=== PATIENT | female | born 1950 | race Caucasian/White ===

== ENCOUNTER → 2017-01-05 08:51 | Day surgery (SDC) | payer MEDICARE, BC ==
[~2017-01-05 08:51] MED LIST: Buffered Lidocaine 1% SYRIN* 3 ML/SYR SYRINGE INTRADERM ONE; Dexamethasone IV* 4 MG/ML 1 ML (4 MG) IV SLOW PU ONE; Dexamethasone IV* 4 MG/ML 1 ML (4 MG) ONE; Famotidine IV* 10 MG/ML 2 ML (20 mg) IV ONE; Famotidine IV* 10 MG/ML 2 ML (20 mg) ONE; Ondansetron INJ* 2 MG/ML VIAL IV PRN; fentaNYL* 50 MCG/ML 2 ML VIAL (100 MCG VIAL) IV PRN; oxyCODONE/Acetamin 5/325 MG* TAB PO PRN
[2017-01-05 12:10] VITALS: BP 142/75
--- NOTE | 2017-01-06 04:17 | OP ---
DATE OF OPERATION: 01/05/17 [facility] DATE OF : 48 SURGEON: Jose Luis Parada MD ANESTHESIOLOGIST: Rickey Antonio MD ANESTHESIA: Spinal. PRE-OP DIAGNOSIS: Cervical abnormality and swelling. POST-OP DIAGNOSES: Cervical abnormality and swelling plus endometrial polyp. OPERATIVE PROCEDURE: D and C, hysteroscopy, and polypectomy. FINDINGS: On exam under anesthesia, the uterus was mid position. There were no adnexal masses palpable, even on rectovaginal. Cervix appeared normal. On hysteroscopy, once into the cervix, the cervical cavity contained a pocket that was somewhat dilated with clear endocervical crypts and a small polyp within it, but no obvious excrescences or signs of gross neoplasm there. Deeper in the cavity was more normal and the endometrial cavity contained a small endometrial polyp, which was removed. Rest of the cavity was atrophic. ESTIMATED BLOOD LOSS: Minimum. SPECIMEN: Include endocervix and endometrial curettings as well as polyp. DESCRIPTION OF PROCEDURE: The patient identified and procedure identified as a D and C, hysteroscopy. The patient was taken to the operating room and prepped and draped in the usual fashion in the dorsal lithotomy position under spinal anesthesia. Two single-tooth tenaculums were placed on the anterior lip of the cervix. Cervix was sounded to 7 cm. The cervix was easily dilated up to #28 Los dilator. The hysteroscope was inserted and the above findings were noted. A sharp curette was inserted and sharp curettage performed until the polyp was excised. Also, attention was paid to the endocervical pocket that was visualized and the polyp was removed from this area as well. Good curettings were obtained from both the endometrial and the endocervical canal. Again, no mass could be seen there. All instruments were removed from the vagina. All sponge and instrument counts were correct, good hemostasis achieved, and the patient returned to recovery room in stable condition. [id number]/[facility] #: [id number] [facility] CENTERJune
== END | disposition home or self-care (01) ==
LOC: OR 08:51
PROVIDERS: ATTEND Obstetrics & Gynecology
DX: N84.0 Polyp of corpus uteri (principal); N88.9 Noninflammatory disorder of cervix uteri, unspecified
CPT/HCPCS: 88305; J1100

== ENCOUNTER 2017-07-04 09:10 | Day surgery (SDC) | payer MEDICARE, BC ==
[~2017-07-04 09:10] MED LIST changes: +Acetaminophen TAB* 325 MG PO PRN; +Buffered Lidocaine 0.9% SYRIN* 5 ML/SYR SYRINGE INTRADERM ONE; -Buffered Lidocaine 1% SYRIN* 3 ML/SYR SYRINGE INTRADERM ONE; -Dexamethasone IV* 4 MG/ML 1 ML (4 MG) IV SLOW PU ONE; -Dexamethasone IV* 4 MG/ML 1 ML (4 MG) ONE; -Famotidine IV* 10 MG/ML 2 ML (20 mg) IV ONE; -Famotidine IV* 10 MG/ML 2 ML (20 mg) ONE; -Ondansetron INJ* 2 MG/ML VIAL IV PRN; -fentaNYL* 50 MCG/ML 2 ML VIAL (100 MCG VIAL) IV PRN; -oxyCODONE/Acetamin 5/325 MG* TAB PO PRN
[2017-07-04] MEDS ORDERED: Midazolam* 1 MG/ML 5 ML VIAL (5 MG) ONE (10:11)
[2017-07-04] MEDS ORDERED: fentaNYL* 50 MCG/ML 2 ML VIAL (100 MCG VIAL) ONE (10:11)
[2017-07-04 11:14] VITALS: BP 140/70
[2017-07-04] MEDS ORDERED: Lidocaine 1% MPF* 2 ML VIAL ONE (14:13)
[2017-07-04] MEDS ORDERED: Tropicamide 1% OPTH.SOL* BTL ONE (14:13)
[2017-07-04] MEDS ORDERED: Neomycin/Polymy/Dex OPHTH.OIN* 3.5 GM ONE (14:13)
[2017-07-04] MEDS ORDERED: Ketorolac 0.5% OPHTH (NF) 0.5 % 5 ML BTL ONE (14:13)
[2017-07-04] MEDS ORDERED: Cyclopentolate 1% OPTH.SOL* 2 ML BTL ONE (14:13)
[2017-07-04] MEDS ORDERED: Phenylephrine 2.5% OPTH.SOL* 2 ML BTL ONE (14:13)
[2017-07-04] MEDS ORDERED: Tetracaine 0.5% OPTH.SOL 4 ML* 1 DROP BTL ONE (14:13)
[2017-07-04] MEDS ORDERED: Buffered Lidocaine 0.9% SYRIN* 5 ML/SYR SYRINGE ONE (14:13)
--- NOTE | 2017-07-04 22:55 | OP ---
DATE OF OPERATION: 07/04/17 [facility] DATE OF : 48 SURGEON: Dr. Edin Bryson. GUEST HOUSE MANAGER: None. ANESTHESIA: Topical with intravenous sedation. PRE-OP DIAGNOSIS: Cataract, right eye. POST-OP DIAGNOSIS: Cataract, right eye. OPERATIVE PROCEDURE: Phacoemulsification and cataract extraction with posterior chamber intraocular lens implant, right eye. COMPLICATIONS: None. BLOOD LOSS: None. DESCRIPTION OF PROCEDURE: The patient was brought to the operating room and received a small amount of intra-venous sedation. A drop of Tetracaine was placed in her right eye. She was prepped and draped in the usual sterile fashion for ophthalmic surgery and attention was directed to the right eye where a speculum was placed. A paracentesis was created at the 11 o'clock position and 0.1 cc of 1 percent preservative-free Lidocaine was injected into the anterior chamber followed by DisCoVisc. The eye was digitally stabilized while a 2.75 mm keratome was used to create a triplanar clear corneal incision at the 9 o'clock position. A continuous curvilinear capsulorrhexis was created with a cystotome and Utrata forceps. BSS on a cannula was used to hydrodissect the lens from the capsule. Phacoemulsification was performed in a divide-and- conquer technique to create four fragments which were removed. Residual cortical material was removed with irrigation and aspiration. DisCoVisc was used to inflate the capsular bag and an AU00T0 24.0 diopter lens was folded and inserted into the capsular bag. DisCoVisc was removed using irrigation and aspiration. BSS on a cannula was used to hydrate the corneal stroma and seal the wound. At the end of the case the pupil was round and the lens was centered. The eye was of normal pressure and the wound was water tight. The speculum was removed and topical Maxitrol ointment was placed on the surface of the eye. The eye was closed, patched and shielded and the patient was sent to the recovery room in stable condition with post operative instructions and follow-up appointment given. [id number]/[facility] #: [id number] [place]
== END 2017-07-04 11:20 | disposition home or self-care (01) ==
LOC: OREAST 09:10
PROVIDERS: ATTEND Ophthalmology
DX: H25.11 Age-related nuclear cataract, right eye (principal); E78.00 Pure hypercholesterolemia, unspecified; F32.9 Major depressive disorder, single episode, unspecified
CPT/HCPCS: A9270-GY; J2250; J3010; V2632

== ENCOUNTER 2017-07-11 07:04 | Day surgery (SDC) | payer MEDICARE, BC ==
[~2017-07-11 07:04] MED LIST changes: -Acetaminophen TAB* 325 MG PO PRN
[2017-07-11] MEDS ORDERED: Lidocaine 2% PF * 5 ML VIAL ONE (08:19)
[2017-07-11] MEDS ORDERED: Propofol* 10 MG/ML 20 ML BTL IV PUSH ONE (08:19)
[2017-07-11 09:01] VITALS: BP 127/66
--- NOTE | 2017-07-11 09:57 | OP ---
DATE OF OPERATION/DATE OF DICTATION: 07/11/2017 - [facility] DATE OF : 1950. SURGEON: Dr. Edin Brysno. TRAINING AND DEVELOPMENT SPECIALIST: None. ANESTHESIA: Topical with intravenous sedation. PRE-OP DIAGNOSIS: Cataract, left eye. POST-OP DIAGNOSIS: Cataract, left eye. OPERATIVE PROCEDURE: Phacoemulsification and cataract extraction with posterior chamber intraocular lens implant, left eye. COMPLICATIONS: None. BLOOD LOSS: None. DESCRIPTION OF PROCEDURE: The patient was brought to the operating room and received a small amount of intravenous sedation. A drop of Tetracaine was placed in her left eye. She was prepped and draped in the usual sterile fashion for ophthalmic surgery and attention was directed to the left eye where a speculum was placed. A paracentesis was created at the 5 o'clock position and 0.1 cc of 1 percent preservative-free Lidocaine was injected into the anterior chamber followed by DisCoVisc. The eye was digitally stabilized while a 2.75 mm keratome was used to create a triplanar clear corneal incision at the 3 o'clock position. A continuous curvilinear capsulorrhexis was created with a cystotome and Utrata forceps. BSS on a cannula was used to hydrodissect the lens from the capsule. Phacoemulsification was performed in a divide-and- conquer technique to create four fragments which were removed. Residual cortical material was removed with irrigation and aspiration. DisCoVisc was used to inflate the capsular bag and an AUOOTO 24.0 diopter lens was folded and inserted into the capsular bag. DisCoVisc was removed using irrigation and aspiration. BSS on a cannula was used to hydrate the corneal stroma and seal the wound. At the end of the case the pupil was round and the lens was centered. The eye was of normal pressure and the wound was water tight. The speculum was removed and topical Maxitrol ointment was placed on the surface of the eye. The eye was closed, patched and shielded and the patient was sent to the recovery room in stable condition with post operative instructions and follow-up appointment given. [id number]/[facility] #: [id number] MTD[facility]
[2017-07-11] MEDS ORDERED: Phenylephrine 2.5% OPTH.SOL* 2 ML BTL ONE (15:07)
[2017-07-11] MEDS ORDERED: Neomycin/Polymy/Dex OPHTH.OIN* 3.5 GM ONE (15:07)
[2017-07-11] MEDS ORDERED: Lidocaine 1% MPF* 2 ML VIAL ONE (15:07)
[2017-07-11] MEDS ORDERED: Ketorolac 0.5% OPHTH (NF) 0.5 % 5 ML BTL ONE (15:07)
[2017-07-11] MEDS ORDERED: Tetracaine 0.5% OPTH.SOL 4 ML* 1 DROP BTL ONE (15:07)
[2017-07-11] MEDS ORDERED: Cyclopentolate 1% OPTH.SOL* 2 ML BTL ONE (15:07)
[2017-07-11] MEDS ORDERED: Tropicamide 1% OPTH.SOL* BTL ONE (15:07)
== END 2017-07-11 08:54 | disposition home or self-care (01) ==
LOC: OREAST 07:04
PROVIDERS: ATTEND Ophthalmology
DX: H25.12 Age-related nuclear cataract, left eye (principal); E78.5 Hyperlipidemia, unspecified; J45.909 Unspecified asthma, uncomplicated; Z68.36 Body mass index [BMI] 36.0-36.9, adult
CPT/HCPCS: A9270-GY; J2704; V2632

== ENCOUNTER 2018-12-24 19:16 | Observation (INO) | payer MEDICARE, BC ==
--- NOTE | 2018-12-24 19:31 | ED ---
Dizziness - HPI Summary HPI Summary: This patient is a 68 year old F brought in by ambulance to ED with a chief complaint of vertigo since late yesterday. She was brought to [facility] and then transferred from their ED. She was given Benadryl and ASA. The patient rates the pain 0/10 in severity. Symptoms aggravated by standing up or moving around. Symptoms alleviated by resting. Patient reports N/V x1 last night and unsteady gait (baseline). Patient denies CP, nasal congestion, ear pain, recent illnesses, SOB, and slurred speech. She reports shes never had previous vertigo episodes. - History Of Current Complaint Stated Complaint: NEURO CONSULT PER EMS Time Seen by Provider: 12/24/18 19:21 Hx Obtained From: Patient Onset/Duration: Suddenly - since late yesterday Timing: Days Severity Currently: None Aggravating Factor(s): Other - standing up or moving around Alleviating Factor(s): Rest Associated Signs And Symptoms: Positive: Nausea, Vomiting, Unsteady Gait - her baseline, Other: - denies nasal congestion, ear pain, recent illnesses, slurred speech. Negative: Chest Pain, SOB - Allergies/Home Medications Allergies/Adverse Reactions: Allergies Allergy/AdvReac Type Severity Reaction Status Date / Time No Known Allergies Allergy Verified 07/11/17 07:25 PMH/Surg Hx/FS Hx/Imm Hx Endocrine/Hematology History: Denies: Hx Diabetes Cardiovascular History: Denies: Hx Coronary Artery Disease, Hx Hypertension, Hx Pacemaker/ICD, Other Cardiovascular Problems/Disorders Respiratory History: Denies: Other Respiratory Problems/Disorders GI History: Denies: Hx Gastroesophageal Reflux Disease, Other GI Disorders History: Denies: Hx Dialysis, Hx Renal Disease Musculoskeletal History: Reports: Hx Bursitis - RIGHT HIP Denies: Other Musculoskeletal History Sensory History: Reports: Hx Cataracts - LEANNA, Hx Contacts or Glasses - GLASSES Denies: Hx Hearing Aid Opthamlomology History: Reports: Hx Cataracts - LEANNA, Hx Contacts or Glasses - GLASSES Neurological History: Denies: Other Neuro Impairments/Disorders Psychiatric History: Reports: Hx Anxiety, Hx Depression - ON LAMICTAL FOR THIS Denies: Hx Panic Disorder - Cancer History Hx Chemotherapy: No Hx Radiation Therapy: No - Surgical History Surgery Procedure, Year, and Place: SPINAL CYST REMOVED. BREAST BIOPSY Hx Anesthesia Reactions: No - Immunization History Date of Tetanus Vaccine: PT STATES UNSURE Date of Influenza Vaccine: NONE - Family History Known Family History: Positive: Cardiac Disease, Other Family History: CA and Alzheimer's - Social History Alcohol Use: Rare Alcohol Amount: 1 X MONTHLY Substance Use Type: Reports: None Smoking Status (MU): Never Smoked Tobacco Review of Systems Positive: Other - denies recent illnesses. Negative: Fever, Chills Negative: Erythema Positive: Other - denies nasal congestion, ear pain. Negative: Sore Throat Negative: Chest Pain Negative: Shortness Of Breath, Cough Positive: Vomiting - x1 last night, Nausea - x1 last night. Negative: Abdominal Pain Negative: dysuria, hematuria Negative: Myalgia, Edema Negative: Rash Neurological: Other - unsteady gait (baseline), vertigo Negative: Slurred Speech All Other Systems Reviewed And Are Negative: Yes Physical Exam - Summary Physical Exam Summary: Constitutional: Well-developed, Well-nourished, Alert. (-) Distressed Skin: Warm, Dry HENT: Normocephalic; Atraumatic Eyes: Conjunctiva normal Neck: Musculoskeletal ROM normal neck. (-) JVD, (-) Stridor, (-) Tracheal deviation Cardio: Rhythm regular, rate normal, Heart sounds normal; Intact distal pulses; The pedal pulses are 2+ and symmetric. Radial pulses are 2+ and symmetric. (-) Murmur Pulmonary/Chest wall: Effort normal. (-) Respiratory distress, (-) Wheezes, (-) Rales Abd: Soft. (-) Tenderness, (-) Distension, (-) Guarding, (-) Rebound Musculoskeletal: (-) Edema Lymph: (-) Cervical adenopathy Neuro: Alert, Oriented x3, Strength normal, Cranial nerves II-XII are grossly intact. (-) Dysmetria, (-) Nystagmus, (-) Ataxia by finger to nose testing, (-) Sensory deficit. Gait was somewhat unsteady. Negative romberg test. Heel to langley test is normal. Supine roll test and marah hallpike test is negative. Constant vertigo irrespective of head movement, could be posterior stroke. Psych: Mood and affect Normal Triage Information Reviewed: Yes Vital Signs On Initial Exam: Initial Vitals Temp Pulse Resp BP Pulse Ox 98.6 F 87 18 168/87 97 12/24/18 19:24 12/24/18 19:24 12/24/18 19:24 12/24/18 19:24 12/24/18 19:24 Vital Signs Reviewed: Yes Diagnostics - Laboratory Result Diagrams: 12/24/18 19:52 12/24/18 19:52 Lab Statement: Any lab studies that have been ordered have been reviewed, and results considered in the medical decision making process. - EKG 2126 Cardiac Rate: NL - 77 BPM EKG Rhythm: Sinus Rhythm Summary of EKG Findings: No STEMI - Additional Comments Diagnostic Additional Comments: Brain MRI, Head and Neck MRA: Pending radiologist official report. Dr. Hayes will take over from here. Dizzy Course/Dx - Course Assessment/Plan: This patient is a 68 year old F brought in by ambulance to ED with a chief complaint of vertigo since late yesterday. The patient has constant vertigo irrespective of head movement, could be posterior stroke. Consulted Dr. Jeffrey at 1940 who suggests an MRI/MRA and admission to the hospitalist. He says that she is most likely out of the neurology interventional window and that it is extremely unlikely that she has a basilar artery occlusion. Consulted Dr. Hayes at 1953 who accepts the patient for admission. I reviewed the chart from [facility] and reviewed that they gave the patient ASA and Meclizine. In the ED course, the patient was given Lopressor. EKG reveals NSR at 77 BPM and no STEMI.The patient will be admitted with a dx of vertigo, gait instability, and stroke. The patient understands and agrees with this plan. - Diagnoses Differential Diagnosis/HQI/PQRI: Other - vertigo, gait instability, and stroke Provider Diagnoses: Vertigo, Gait instability, Stroke - Provider Notifications Discussed Care Of Patient With: Skyler Jeffrey Time Discussed With Above Provider: 19:41 Instructed by Provider To: Other - Consulted Dr. Jeffrey at 1940 who suggests an MRI/MRA and admission to the hospitalist. He says that she is most likely out of the neurology interventional window and that it is extremely unlikely that she has a basilar artery occlusion. Consulted Dr. Hayes at 1953 and she accepts the patient for admission. - Critical Care Time Critical Care Time: 30-74 min - 45 minutes Discharge - Sign-Out/Discharge Documenting (check all that apply): Patient Departure - admit Patient Received Moderate/Deep Sedation with Procedure: No - Discharge Plan Condition: Stable Disposition: ADMITTED TO [facility] Referrals: Bruna Moore MD [Primary Care Provider] - - Attestation Statements Document Initiated by Scribe: Yes Documenting Scribe: Jose Carter Provider For Whom Scribe is Documenting (Include Credential): Margarito Nash MD Scribe Attestation: Jose Preston, scribed for Margarito Nash MD on 12/24/18 at 2151. Status of Scribe Document: Ready
[2018-12-24] MEDS ORDERED: Metoprolol Tartrate TAB* 25 MG PO ONE (19:45)
[2018-12-24 20:00] LABS: ABS Basophils 0.1 10^3/ul (0-0.2); ABS Eosinophils 0.1 10^3/ul (0-0.6); ABS Lymphocytes 1.3 10^3/ul (1.0-4.8); ABS Monocytes 0.5 10^3/ul (0-0.8); ABS Neutrophils 4.4 10^3/ul (1.5-7.7); ABS Nucleated RBC 0 10^3/ul; Eosinophil % 1.6 %; Hematocrit 36 % (33-41); Hemoglobin 12.1 g/dL (12.0-16.0); Lymphocyte % 19.6 %; Mean Corpuscular HGB Conc 33 g/dL (31-36); Mean Corpuscular Hemoglobin 30 pg (27-31); Mean Corpuscular Volume 89 fL (80-97); Mean Platelet Volume 6.4 fL (7.4-10.4); Nucleated Red Blood Cells % 0; Platelet Count 354 10^3/uL (150-450); Red Cell Distribution Width 14 % (10.5-15); White Blood Count 6.4 10^3/uL (3.5-10.8)
--- OUTSIDE RECORDS SUMMARY | 2018-12-24 20:18 | XMS REPORT | Continuity of Care Document ---
:1950 External Reference #:[id number] Author Name Henri Ary Care Team Providers Name Role Phone Bruna Moore MD Primary Care Physician Unavailable Payers Date Identification Numbers Payment Provider Subscriber Policy Number: [id number] Medicare Candice Payton PayID: [id number] [address] [place] [address] Policy Number: [id number] [facility] Candice Payton PayID: [id number] [address] [place] [address] Advance Directives Description No Information Available Problems Date Description Provider Status Onset: 09/22/2010 Anxiety state Bruna Moore M.D. Active Onset: 09/22/2010 Hyperlipidemia Bruna Moore M.D. Active Onset: 12/08/2016 Sprain of shoulder and upper arm Torey Lewis MD Active Onset: 12/08/2016 Injury of shoulder region Torey Lewis MD Active Onset: 12/08/2016 Localized, secondary Torey Lewis MD Active osteoarthritis of the shoulder region Onset: 10/26/2017 Disturbance in sleep behavior Yessenia Marques MD Active Onset: 11/28/2017 Obstructive sleep apnea syndrome Lora Pryor DNP RN, Active [employer] Onset: 11/28/2017 Periodic limb movement disorder Lora Pryor DNP, RN, Active [employer] Family History Date Family Member(s) Observation Comments General No Current Problems : (age Father due to Heart Cardiac arrest, skin 91 Years) Disease cancer, hyperlipidemia : (age Mother due to 94 Years) Alzheimer's Disease Siblings Siblings: 1 sister, 2 brothers First Sister Skin Cancer multiple BCC Social History Type Date Description Comments Sex Unknown Lives With Alone 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[employer], retired Occupation Retired Tobacco Use Start: Unknown Never Smoked Cigarettes ETOH Use Drinks Alcoholic Beverages Rarely Tobacco Use Start: Unknown Patient has never smoked Recreational Drug Use Denies Drug Use Smoking Status Reviewed: 11/27/18 Patient has never smoked Exercise Type/Frequency Exercises regularly Exercise Type/Frequency Exercises at a health club 5 times a week Allergies, Adverse Reactions, Alerts Date Description Reaction Status Severity Comments 11/17/2009 No Known Drug Allergy Active Medications Medication Date Status Form Strength Qnty SIG Indications Ordering Provider Gabapentin 10/30 Active Capsules 300mg 30caps take 1 capsules Cotton, by mouth M.D. at bedtime Diclofenac 10/01 Active Gel 1% 100unit apply not M19.049 s more than Cotton, 2 grams M.D. to the hands 4 times a day as needed Atorvastatin 11/05 Active Tablets 80mg 90tabs take 1 Calcium tablet by Cotton, mouth M.D. once daily Venlafaxine HCL 05/07 Active Tablets ER 150mg 90tabs take 3 F32.9 Bruna ER 24HR tablets Cotton, by mouth M.D. once daily Lamotrigine 05/07 Active Tablets 200mg 60tabs 1 by Bruna /2014 mouth Cotton, twice a M.D. day Benadryl Allergy Active Tablets 25mg 2 po Unknown /0000 nightly for sleep Melatonin Active 1 po at Unknown /0000 night Gabapentin 03/23 Hx Capsules 100mg 60caps 1-3 tablets Cotton, - once M.D. 10/30 daily at bedtime Estradiol 08/28 Hx Tablets 0.5mg 30tabs 1 po qd R61 Bruna /2017 Not Cotton, - started M.D. 02/0611/28/17 Medroxyprogester 08/28 Hx Tablets 2.5mg 30tabs 1 PO qd R61 Bruna Not Cotton, - started M.D. 02/0611/28/17 Alprazolam 11/25 Hx Tablets 0.25mg 20tabs 1 tab by F41.9 mouth Cotton, - twice M.D. 08/27 daily needed anxiety Triamcinolone 10/03 Hx Cream 0.1% 15gm apply R21 Bruna Acetonide thin film Cotton, - twice M.D. 01/24 daily Tramadol HCL 02/01 Hx Tablets 50mg 30tabs 1 tablet S23.41xA three to Rex, N.P. - four 10/27 times daily as needed Atorvastatin 10/17 Hx Tablets 80mg 90tabs 1 by Bruna Calcium /2014 mouth Cotton, - every day M.D. 10/26 Amitriptyline 05/07 Hx Tablets 10mg 90tabs 3 by Bruna HCL mouth Cotton, - every day M.D. 02/01 Atorvastatin 04/10 Hx Tablets 40mg 1 by Bruna Calcium mouth Cotton, - every day M.D. 04/10 Atorvastatin 04/10 Hx Tablets 40mg 30tabs 1 by Ericka Calcium mouth Varn, N.P. - every day 10/17 Atorvastatin 10/10 Hx Tablets 80mg 90tabs 1 po qhs Bruna Calcium Cotton, - M.D. 04/10 Support 07/27 Hx 2Pairs 15 - 20 451.2 Ericka Stockings strengnth Rex, N.P. - thigh 01/23 Atorvastatin 04/27 Hx Tablets 40mg 90tabs Take 1 Bruna Calcium Tablet By Cotton, - Mouth M.D. 10/10 Once Daily Astelin 02/10 Hx Solution 137mcg/Sp 30ml 2 squirts ray in each Cotton, - nostril M.D. 10/01 bid Ipratropium 02/01 Hx Solution 0.03% 30ml 2 sprays 472.0 Bruna Vichy in each Cotton, - nostril M.D. 02/10 2-3 times daily Atrovent 01/30 Hx Solution 0.03% 30ml 2 sprays in each Cotton, - nostril M.D. 10/01 2-3 times qd prn Fluticasone 01/14 Hx Suspension 50mcg/Act 16gm 2 472.0 Bruna Propionate intranasa Cotton, - l puffs M.D. 02/01 daily Ketoconazole 04/30 Hx Cream 2% 60gm apply 782.1 thin film Cotton, - bid M.D. 09/02 Erythromycin 04/26 Hx Gel 2% 30gm apply 782.1 thin film Cotton, - twice M.D. 04/30 Dextroamphetamin 03/17 Hx Caps ER 5mg 1-2 Unknown e Sulfate 24HR tablets - once 04/26 Nasonex 03/17 Hx Suspension 50mcg/Act sample 2 sprays each Cotton, - nostril M.D. 05/24 Amitriptyline 03/17 Hx Tablets 25mg 2 tablets once Cotton, - daily at M.D. 05/07 bedtime Lipitor 03/17 Hx Tablets 40mg 90tabs Take 1 Tablet By Cotton, - Mouth M.D. 04/27 Daily Lamictal Hx Chewtabs 200mg 1 tablet Unknown /0000 twice - daily 05/25 Effexor XR Hx Caps ER 150mg 30caps 3 311 Unknown /0000 24HR capsules - once 05/07 Clonazepam Hx Tablets 0.5mg 30tabs 09/28 - 1 Bruna tab by Cotton, - mouth M.D. 11/19 night at bedtime Amitriptyline Hx Tablets 10mg 30tabs Unknown HCL /0000 - 03/17 Dextroamphetamin Hx Tablets 10mg 1-2 Unknown e Sulfate tablets - once 09/02 Vyvanse Hx Capsules 40mg 1 po qd Unknown /0000 - 10/01 Lamictal Hx Chewtabs 200mg 1 tablet 311 Unknown /0000 twice - daily 05/07 Aspirin Ec Hx Tablets [address] 81mg 1 by Unknown /0000 mouth - every day 01/24 Effexor XR Hx Caps ER 150mg 1 by Unknown /0000 24HR mouth tid - 10/26 Lipitor Hx Tablets 80mg 1 by Unknown /0000 mouth - every 11/05 night at bedtime Medications Administered in Office Medication Date Status Form Strength Qnty SIG Indications Ordering Provider Inj, Administered Injection Randell D. Regadenoson, 015 Bailey Diaz 0.1 MG Technetium TC Administered Injection Randell DIvelisse 99M 015 Baliey Diaz Tetrofosmin, Per Unit Dose Up To 40 Millicuries Immunizations CPT Code Status Date Vaccine Lot # [id number] Given 06/20/2017 Fluzone High Dose 88826 Given 11/19/2015 Pneumonia Vaccine [id number] 67422 Given 11/13/2014 Pneumococcal Conjugate Vaccine 13 Valent For [id number] Intramuscular Use 57005 Given 06/19/2014 Influenza Virus Vaccine, Quadrivalent, Split, hy658fe Preservative Free 66229 Given 07/01/2011 Influenza Virus 3Yrs & Over [id number] 57355 Given 07/13/2009 Tdap - Tetanus/Diptheria/Acellular Pertussis 53642 Given 07/13/2009 Influenza Virus 3Yrs & Over 53776 Given 07/08/2008 Influenza Virus 3Yrs & Over Vital Signs Date Vital Result Comment 11/27/2018 3:03pm Height 64 inches 5'4" Weight 192.00 lb Heart Rate 88 /min BP Systolic Sitting 127 mmHg BP Diastolic Sitting 73 mmHg O2 % BldC Oximetry 95 % BMI (Body Mass Index) 33.0 kg/m2 10/01/2018 10:53am Height 64 inches 5'4" Weight 191.00 lb Heart Rate 76 /min BP Systolic Sitting 127 mmHg BP Diastolic Sitting 69 mmHg O2 % BldC Oximetry 95 % BMI (Body Mass Index) 32.8 kg/m2 06/19/2018 2:26pm Height 64 inches 5'4" Weight 192.00 lb Heart Rate 92 /min BP Systolic Sitting 131 mmHg BP Diastolic Sitting 77 mmHg O2 % BldC Oximetry 96 % BMI (Body Mass Index) 33.0 kg/m2 03/22/2018 11:20am Height 64 inches 5'4" Weight 188.00 lb Heart Rate 82 /min BP Systolic Sitting 115 mmHg BP Diastolic Sitting 77 mmHg O2 % BldC Oximetry 96 % BMI (Body Mass Index) 32.3 kg/m2 02/07/2018 9:26am Height 64 inches 5'4" Weight 189.00 lb Heart Rate 80 /min BP Systolic Sitting 142 mmHg Rue reg cuff BP Diastolic Sitting 98 mmHg Rue reg cuff Respiratory Rate 16 /min O2 % BldC Oximetry 96 % On Ra BMI (Body Mass Index) 32.4 kg/m2 11/28/2017 8:44am Height 64 inches 5'4" Weight 184.00 lb Heart Rate 76 /min BP Systolic Sitting 130 mmHg Lue reg cuff BP Diastolic Sitting 80 mmHg Lue reg cuff Respiratory Rate 16 /min O2 % BldC Oximetry 97 % On Ra BMI (Body Mass Index) 31.6 kg/m2 11/14/2017 3:35pm Weight 182.00 lb Heart Rate 79 /min BP Systolic 138 mmHg BP Diastolic 78 mmHg Body Temperature 98.1 F O2 % BldC Oximetry 98 % 10/26/2017 2:04pm Height 60.5 inches 5'0.50" Weight 183.00 lb per pt Heart Rate 78 /min Respiratory Rate 16 /min O2 % BldC Oximetry 98 % On Ra BMI (Body Mass Index) 35.1 kg/m2 Neck Circumference in inches 15 09/19/2017 10:02am Height 60.5 inches 5'0.50" Weight 194.00 lb Heart Rate 93 /min BP Systolic 120 mmHg BP Diastolic 70 mmHg O2 % BldC Oximetry 96 % BMI (Body Mass Index) 37.3 kg/m2 08/28/2017 2:47pm Height 60.5 inches 5'0.50" Weight 192.50 lb Heart Rate 91 /min BP Systolic 132 mmHg BP Diastolic 60 mmHg O2 % BldC Oximetry 98 % BMI (Body Mass Index) 37.0 kg/m2 06/28/2017 9:52am Height 60.5 inches 5'0.50" Weight 188.00 lb Heart Rate 75 /min BP Systolic Sitting 126 mmHg BP Diastolic Sitting 82 mmHg O2 % BldC Oximetry 98 % BMI (Body Mass Index) 36.1 kg/m2 05/30/2017 10:13am Height 60.5 inches 5'0.50" Weight 184.00 lb Heart Rate 80 /min BP Systolic Sitting 118 mmHg BP Diastolic Sitting 80 mmHg Body Temperature 97.4 F BMI (Body Mass Index) 35.3 kg/m2 05/19/2017 3:53pm Height 65.50 inches 5'5.50" Weight 182.00 lb Heart Rate 86 /min BP Systolic 130 mmHg BP Diastolic 76 mmHg Body Temperature 98.2 F O2 % BldC Oximetry 98 % BMI (Body Mass Index) 29.8 kg/m2 01/24/2017 3:50pm Weight 191.00 lb Heart Rate 96 /min BP Systolic Sitting 136 mmHg BP Diastolic Sitting 78 mmHg O2 % BldC Oximetry 98 % 12/08/2016 9:45am Height 60.5 inches 5'0.50" Weight 184.00 lb Heart Rate 87 /min BP Systolic 118 mmHg BP Diastolic 71 mmHg Body Temperature 97.1 F BMI (Body Mass Index) 35.3 kg/m2 11/25/2016 10:46am Height 65 inches 5'5" Weight 184.00 lb Heart Rate 90 /min BP Systolic 124 mmHg BP Diastolic 76 mmHg O2 % BldC Oximetry 97 % BMI (Body Mass Index) 30.6 kg/m2 10/27/2016 2:21pm Height 64.5 inches 5'4.50" Weight 187.00 lb Heart Rate 86 /min BP Systolic 118 mmHg BP Diastolic 68 mmHg Body Temperature 98.9 F O2 % BldC Oximetry 98 % BMI (Body Mass Index) 31.6 kg/m2 10/03/2016 3:37pm Weight 190.00 lb with shoes Heart Rate 93 /min BP Systolic Sitting 120 mmHg BP Diastolic Sitting 60 mmHg O2 % BldC Oximetry 98 % 05/20/2016 2:32pm Weight 193.50 lb Heart Rate 76 /min BP Systolic 126 mmHg BP Diastolic 73 mmHg O2 % BldC Oximetry 99 % 02/02/2016 1:56pm Height 64.5 inches 5'4.50" Weight 190.00 lb Heart Rate 76 /min BP Systolic Sitting 130 mmHg BP Diastolic Sitting 84 mmHg Respiratory Rate 15 /min Body Temperature 97.3 F O2 % BldC Oximetry 98 % BMI (Body Mass Index) 32.1 kg/m2 11/19/2015 1:08pm Height 64.5 inches 5'4.50" Weight 192.75 lb Heart Rate 80 /min BP Systolic Sitting 124 mmHg BP Diastolic Sitting 70 mmHg Body Temperature 97.9 F O2 % BldC Oximetry 97 % BMI (Body Mass Index) 32.6 kg/m2 04/17/2015 1:46pm Weight 173.00 lb Heart Rate 88 /min BP Systolic Sitting 123 mmHg BP Diastolic Sitting 71 mmHg Body Temperature 97.9 F 02/18/2015 9:01am Weight 176.75 lb Heart Rate 80 /min BP Systolic Sitting 103 mmHg BP Diastolic Sitting 63 mmHg 02/05/2015 3:23pm Height 65.25 inches 5'5.25" Weight 174.00 lb Heart Rate 76 /min BP Systolic Sitting 112 mmHg BP Diastolic Sitting 64 mmHg Respiratory Rate 16 /min BMI (Body Mass Index) 28.7 kg/m2 11/13/2014 10:24am Height 65.25 inches 5'5.25" Weight 175.00 lb Heart Rate 82 /min BP Systolic Sitting 106 mmHg BP Diastolic Sitting 66 mmHg Body Temperature 97.8 F BMI (Body Mass Index) 28.9 kg/m2 10/14/2014 4:11pm Height 65.5 inches 5'5.50" Weight 179.00 lb Heart Rate 72 /min BP Systolic 118 mmHg BP Diastolic 72 mmHg Body Temperature 98.3 F BMI (Body Mass Index) 29.3 kg/m2 06/19/2014 10:58am Weight 182.00 lb Heart Rate 84 /min BP Systolic Sitting 118 mmHg BP Diastolic Sitting 74 mmHg Body Temperature 97.8 F 05/07/2014 9:42am Weight 181.00 lb Heart Rate 72 /min BP Systolic Sitting 108 mmHg BP Diastolic Sitting 68 mmHg Body Temperature 96.8 F 04/10/2014 11:42am Height 66.5 inches 5'6.50" Weight 181.00 lb with shoes Heart Rate 78 /min BP Systolic Sitting 104 mmHg BP Diastolic Sitting 64 mmHg Body Temperature 96.6 F BMI (Body Mass Index) 28.8 kg/m2 02/18/2014 11:11am Height 66.5 inches 5'6.50" Weight 185.00 lb Heart Rate 76 /min BP Systolic Sitting 120 mmHg BP Diastolic Sitting 70 mmHg Respiratory Rate 16 /min BMI (Body Mass Index) 29.4 kg/m2 12/26/2012 4:25pm Height 66.5 inches 5'6.50" Weight 199.00 lb Heart Rate 80 /min BP Systolic Sitting 124 mmHg BP Diastolic Sitting 62 mmHg BMI (Body Mass Index) 31.6 kg/m2 10/01/2012 10:02am Height 66.5 inches 5'6.50" Weight 197.00 lb Heart Rate 80 /min BP Systolic Sitting 126 mmHg BP Diastolic Sitting 78 mmHg Body Temperature 98.5 F BMI (Body Mass Index) 31.3 kg/m2 08/02/2012 11:13am Height 66.5 inches 5'6.50" Weight 193.00 lb Heart Rate 92 /min BP Systolic Sitting 138 mmHg BP Diastolic Sitting 66 mmHg BMI (Body Mass Index) 30.7 kg/m2 07/27/2012 1:52pm Height 66.5 inches 5'6.50" Weight 193.00 lb Heart Rate 88 /min BP Systolic Sitting 124 mmHg BP Diastolic Sitting 70 mmHg BMI (Body Mass Index) 30.7 kg/m2 05/25/2012 3:58pm Height 66.5 inches 5'6.50" Weight 186.00 lb Heart Rate 78 /min BP Systolic Sitting 120 mmHg BP Diastolic Sitting 70 mmHg BMI (Body Mass Index) 29.6 kg/m2 03/19/2012 10:30am Height 66.5 inches 5'6.50" Weight 182.00 lb Heart Rate 76 /min BP Systolic Sitting 122 mmHg BP Diastolic Sitting 76 mmHg BMI (Body Mass Index) 28.9 kg/m2 02/02/2012 1:02pm Height 66.5 inches 5'6.50" Weight 186.00 lb Heart Rate 76 /min BP Systolic Sitting 112 mmHg BP Diastolic Sitting 62 mmHg BMI (Body Mass Index) 29.6 kg/m2 09/29/2011 9:48am Height 66.5 inches 5'6.50" Weight 200.00 lb Heart Rate 78 /min BP Systolic Sitting 110 mmHg BP Diastolic Sitting 70 mmHg BMI (Body Mass Index) 31.8 kg/m2 07/01/2011 2:02pm Height 66.5 inches 5'6.50" Weight 196.00 lb Heart Rate 66 /min BP Systolic Sitting 134 mmHg BP Diastolic Sitting 82 mmHg BMI (Body Mass Index) 31.2 kg/m2 02/01/2011 3:35pm Height 66.5 inches 5'6.50" Weight 201.00 lb Heart Rate 76 /min BP Systolic 120 mmHg BP Diastolic 70 mmHg BMI (Body Mass Index) 32.0 kg/m2 01/14/2011 1:38pm Weight 200.00 lb Heart Rate 78 /min BP Systolic Sitting 100 mmHg BP Diastolic Sitting 78 mmHg 09/15/2010 10:05am Weight 193.00 lb Heart Rate 82 /min BP Systolic 118 mmHg lg cuff BP Diastolic 78 mmHg lg cuff 09/02/2010 9:37am Weight 189.00 lb Heart Rate 64 /min BP Systolic 112 mmHg BP Diastolic 72 mmHg 05/24/2010 6:53pm Weight 185.75 lb Heart Rate 84 /min BP Systolic 120 mmHg BP Diastolic 78 mmHg Results Test Date Facility Test Result H/L Range Note Liver Function 07/16/2018 [facility] Total Protein 6.8 g/dL N 6.4-8.9 Panel [address] [place] [address] [phone] Albumin 4.3 g/dL N 3.2-5.2 Globulin 2.5 g/dL N 2-4 Albumin/Globulin Ratio 1.7 N 1-3 Total Bilirubin 0.30 mg/dL N 0.2-1.0 Direct Bilirubin 0.10 mg/dL N 0.03-0.18 Indirect Bilirubin 0.2 mg/dL Low 0.3-1.0 Alkaline Phosphatase 101 U/L N 34-104 Alt 19 U/L N 7-52 Ast 15 U/L N 13-39 Laboratory test 07/16/2018 [facility] GGTP 29 U/L N 9-64.0 1 finding [address] [place] [address] [phone] Comp Metabolic Panel 06/21/2018 [facility] Sodium 142 mmol/L N 135-145 [address] [place] [address] [phone] Potassium 4.3 mmol/L N 3.5-5.0 Chloride 106 mmol/L N 101-111 Co2 Carbon Dioxide 29 mmol/L N 22-32 Anion Gap 7 mmol/L N 2-11 Glucose 97 mg/dL N 70-100 Blood Urea Nitrogen 12 mg/dL N 6-24 Creatinine 1.02 mg/dL High 0.51-0.95 BUN/Creatinine Ratio 11.8 N 8-20 Calcium 9.6 mg/dL N 8.6-10.3 Total Protein 6.8 g/dL N 6.4-8.9 Albumin 4.2 g/dL N 3.2-5.2 Globulin 2.6 g/dL N 2-4 Albumin/Globulin Ratio 1.6 N 1-3 Total Bilirubin 0.50 mg/dL N 0.2-1.0 Alkaline Phosphatase 124 U/L High 34-104 Alt 19 U/L N 7-52 Ast 16 U/L N 13-39 Egfr Non- 53.9 >60 Egfr 65.2 >60 2 Laboratory test 06/21/2018 [facility] Hemoglobin A1c 5.7 % High 4.0-5.[address] (Glyco HGB) [place] [address] [phone] Lipid Profile 06/21/2018 [facility] Triglycerides 185 4 (Trig/Chol/HDL) 101 mg/[place] [address] [phone] Cholesterol 208 mg/dL 5 HDL Cholesterol 50.3 mg/dL 6 LDL Cholesterol 121 mg/dL 7 Laboratory test 03/22/2018 [facility] Magnesium 2.1 mg/dL N 1.9-2.[address] [place] [address] [phone] Vitamin B12 592 pg/mL N 180-914 8 Laboratory test 03/22/2018 [facility] Ferritin 15.6 ng/mL N 11 -[address] [place] [address] [phone] CBC Auto Diff 03/22/2018 [facility] White Blood 5.8 10^3/uL N 3.5-10.[address] [place] [address] [phone] Red Blood Count 4.25 10^6/uL N 4.00-5.40 Hemoglobin 12.9 g/dL N 12.0-16.0 Hematocrit 38 % N 35-47 Mean Corpuscular Volume 90 fL N 80-97 Mean Corpuscular Hemoglobin 30 pg N 27-31 Mean Corpuscular HGB Conc 34 g/dL N 31-36 Red Cell Distribution Width 14 % N 10.5-15 Platelet Count 360 10^3/uL N 150-450 Mean Platelet Volume 7.9 um3 N 7.4-10.4 Abs Neutrophils 4.2 10^3/uL N 1.5-7.7 Abs Lymphocytes 1.0 10^3/uL N 1.0-4.8 Abs Monocytes 0.5 10^3/uL N 0-0.8 Abs Eosinophils 0.1 10^3/uL N 0-0.6 Abs Basophils 0 10^3/uL N 0-0.2 Abs Nucleated RBC 0 10^3/uL Granulocyte % 72.4 % N 38-83 Lymphocyte % 17.7 % Low 25-47 Monocyte % 8.2 % High 0-7 Eosinophil % 1.1 % N 0-6 Basophil % 0.6 % N 0-2 Nucleated Red Blood Cells % 0.1 Iron & Iron Binding 03/22/2018 [facility] Iron 92 g/dL N 50- [address] [place] [address] [phone] Unsaturated Iron Binding 266 g/dL Total Iron Binding Capacity 358 g/dL N 250-450 Transferrin 256 mg/dL N 203-362 % Iron Saturation 26 % N 15-55 CBC Auto Diff 09/05/2017 [facility] White Blood 7.1 10^3/uL N 3.5-10.[address] [place] [address] [phone] Red Blood Count 4.25 10^6/uL N 4.0-5.4 Hemoglobin 12.1 g/dL N 12.0-16.0 Hematocrit 37 % N 35-47 Mean Corpuscular Volume 86 fL N 80-97 Mean Corpuscular Hemoglobin 29 pg N 27-31 Mean Corpuscular HGB Conc 33 g/dL N 31-36 Red Cell Distribution Width 15 % N 10.5-15 Platelet Count 409 10^3/uL N 150-450 Mean Platelet Volume 8 um3 N 7.4-10.4 Abs Neutrophils 5.5 10^3/uL N 1.5-7.7 Abs Lymphocytes 1.0 10^3/uL N 1.0-4.8 Abs Monocytes 0.5 10^3/uL N 0-0.8 Abs Eosinophils 0.1 10^3/uL N 0-0.6 Abs Basophils 0 10^3/uL N 0-0.2 Abs Nucleated RBC 0 10^3/uL Granulocyte % 76.7 % N 38-83 Lymphocyte % 14.3 % Low 25-47 Monocyte % 7.6 % N 1-9 Eosinophil % 0.7 % N 0-6 Basophil % 0.7 % N 0-2 Nucleated Red Blood Cells % 0 Laboratory test 09/05/2017 [facility] TSH (Thyroid 2.74 mcIU/mL N 0.34-5.[address] Stim Horm) [place] [address] [phone] Erythrocyte Sed Rate 32 mm/Hr N 0-40 Laboratory test 01/10/2017 [facility] Blood Urea 16 mg/dL N 6- 24 9 finding [address] [place] [address] [phone] Creatinine 01/10/2017 [facility] Creatinine 0.88 mg/dL N 0.51- 0.[address] [place] [address] [phone] Egfr Non- 64.1 N >60 Egfr 82.4 N >60 10 Lipid Profile 12/08/2016 [facility] Triglycerides 173 mg/dL N 11 (Trig/Chol/HDL) [address] [place] [address] [phone] Cholesterol 192 mg/dL N 12 HDL Cholesterol 51.4 mg/dL N 13 LDL Cholesterol 106 mg/dL N 14 Comp Metabolic Panel 12/08/2016 [facility] Sodium 139 mmol/L N 133-[address] [place] [address] [phone] Potassium 4.2 mmol/L N 3.5-5.0 Chloride 103 mmol/L N 101-111 Co2 Carbon Dioxide 28 mmol/L N 22-32 Anion Gap 8 mmol/L N 2-11 Glucose 93 mg/dL N 70-100 Blood Urea Nitrogen 13 mg/dL N 6-24 Creatinine 0.96 mg/dL High 0.51-0.95 BUN/Creatinine Ratio 13.5 N 8-20 Calcium 9.7 mg/dL N 8.6-10.3 Total Protein 6.9 g/dL N 6.4-8.9 Albumin 4.4 g/dL N 3.2-5.2 Globulin 2.5 g/dL N 2-4 Albumin/Globulin Ratio 1.8 N 1-3 Total Bilirubin 0.50 mg/dL N 0.2-1.0 Alkaline Phosphatase 68 U/L N 34-104 Alt 26 U/L N 7-52 Ast 18 U/L N 13-39 Egfr Non- 58.0 N >60 Egfr 74.6 N >60 15 Lipid Profile 12/03/2015 [facility] Triglycerides 71 mg/dL N 16 (Trig/Chol/HDL) [address] [place] [address] [phone] Cholesterol 138 mg/dL N 17 HDL Cholesterol 53.9 mg/dL N 18 LDL Cholesterol 70 mg/dL N 19 Comp Metabolic Panel 12/03/2015 [facility] Sodium 140 mmol/L N 133-[address] [place] [address] [phone] Potassium 4.4 mmol/L N 3.5-5.0 Chloride 106 mmol/L N 101-111 Co2 Carbon Dioxide 27 mmol/L N 22-32 Anion Gap 7 mmol/L N 2-11 Glucose 95 mg/dL N 70-100 Blood Urea Nitrogen 14 mg/dL N 6-24 Creatinine 0.94 mg/dL N 0.51-0.95 BUN/Creatinine Ratio 14.9 N 8-20 Calcium 9.4 mg/dL N 8.6-10.3 Total Protein 6.7 g/dL N 6.4-8.9 Albumin 4.2 g/dL N 3.2-5.2 Globulin 2.5 g/dL N 2-4 Albumin/Globulin Ratio 1.7 N 1-3 Total Bilirubin 0.40 mg/dL N 0.2-1.0 Alkaline Phosphatase 80 U/L N 34-104 Alt 13 U/L N 7-52 Ast 14 U/L N 13-39 Egfr Non- 59.6 N >60 Egfr 76.6 N >60 20 Laboratory test 12/03/2015 [facility] TSH (Thyroid 2.17 ?IU/mL N 0.34-5.60 [address] Stim Horm) [place] [address] [phone] CBC No Diff 12/03/2015 [facility] White Blood 4.8 10^3/uL N 3.5-10.[address] [place] [address] [phone] Red Blood Count 4.41 10^6/uL N 4.0-5.4 Hemoglobin 13.3 g/dL N 12.0-16.0 Hematocrit 40 % N 35-47 Mean Corpuscular Volume 90 fL N 80-97 Mean Corpuscular Hemoglobin 30 pg N 27-31 Mean Corpuscular HGB Conc 34 g/dL N 31-36 Red Cell Distribution Width 13 % N 10.5-15 Platelet Count 357 10^3/uL N 150-450 Mean Platelet Volume 7 um3 Low 7.4-10.4 Laboratory test 04/17/2015 [facility] Hemoglobin A1c 5.6 % N Less than [address] (Glyco HGB) 6.[address] [place] [address] [phone] TSH (Thyroid Stim Horm) 2.72 ?IU/mL N 0.34-5.60 CBC Auto Diff 04/17/2015 [facility] White Blood 7.7 10^3/uL N 4.8-10.[address] [place] [address] [phone] Red Blood Count 4.31 10^6/uL N 4.0-5.4 Hemoglobin 13.5 g/dL N 12.0-16.0 Hematocrit 40 % N 35-47 Mean Corpuscular Volume 93 fL N 80-97 Mean Corpuscular Hemoglobin 31 pg N 27-31 Mean Corpuscular HGB Conc 34 g/dL N 31-36 Red Cell Distribution Width 13 % N 10.5-15 Platelet Count 343 10^3/uL N 150-450 Mean Platelet Volume 8 um3 N 7.4-10.4 Abs Neutrophils 5.8 10^3/uL N 1.5-7.7 Abs Lymphocytes 1.0 10^3/uL N 1.0-4.8 Abs Monocytes 0.5 10^3/uL N 0-0.8 Abs Eosinophils 0.1 10^3/uL N 0-0.6 Abs Basophils 0.3 10^3/uL High 0-0.2 Abs Nucleated RBC 0 10^3/uL N Granulocyte % 75.5 % N 38-83 Lymphocyte % 12.7 % Low 25-47 Monocyte % 6.8 % N 1-9 Eosinophil % 1.1 % N 0-6 Basophil % 3.9 % High 0-2 Nucleated Red Blood Cells % 0 N Comp Metabolic Panel 04/17/2015 [facility] Sodium 137 mmol/L N 133-[address] [place] [address] [phone] Potassium 4.3 mmol/L N 3.5-5.0 Chloride 104 mmol/L N 101-111 Co2 Carbon Dioxide 27 mmol/L N 22-32 Anion Gap 6 mmol/L N 2-11 Glucose 95 mg/dL N 70-100 Blood Urea Nitrogen 16 mg/dL N 6-24 Creatinine 0.94 mg/dL N 0.51-0.95 BUN/Creatinine Ratio 17.0 N 8-20 Calcium 9.4 mg/dL N 8.6-10.3 Total Protein 6.7 g/dL N 6.4-8.9 Albumin 4.5 g/dL N 3.2-5.2 Globulin 2.2 g/dL N 2-4 Albumin/Globulin Ratio 2.0 N 1-3 Total Bilirubin 0.30 mg/dL N 0.2-1.0 Alkaline Phosphatase 57 U/L N 34-104 Alt 20 U/L N 7-52 Ast 15 U/L N 13-39 Egfr Non- 59.8 N >60 Egfr 76.9 N >60 23 Comp Metabolic Panel 11/11/2014 [facility] Sodium 139 mmol/L N 133-145 24 [address] [place] [address] [phone] Potassium 4.1 mmol/L N 3.5-5.0 Chloride 105 mmol/L N 101-111 Co2 Carbon Dioxide 29 mmol/L N 22-32 Anion Gap 5 mmol/L N 2-11 Glucose 88 mg/dL N 70-100 Blood Urea Nitrogen 9 mg/dL N 6-24 Creatinine 1.05 mg/dL High 0.51-0.95 BUN/Creatinine Ratio 8.6 N 8-20 Calcium 9.2 mg/dL N 8.6-10.3 Total Protein 6.3 g/dL Low 6.4-8.9 Albumin 4.1 g/dL N 3.2-5.2 Globulin 2.2 g/dL N 2-4 Albumin/Globulin Ratio 1.9 N 1-3 Total Bilirubin 0.30 mg/dL N 0.2-1.0 Alkaline Phosphatase 72 U/L N 34-104 Alt 16 U/L N 7-52 Ast 15 U/L N 13-39 Egfr Non- 52.6 N >60 Egfr 67.6 N >60 25 Lipid Profile 11/11/2014 [facility] Triglycerides 87 mg/dL N 26 (Trig/Chol/HDL) [address] [place] [address] [phone] Cholesterol 116 mg/dL N 27 HDL Cholesterol 41.1 mg/dL N 28 LDL Cholesterol 58 mg/dL N 29 CBC Auto 10/31/2014 [facility] [facility] Blood 4.7 10^3/uL Low 4.8 -10.[address] [place] [address] [phone] Red Blood Count 4.24 10^6/uL N 4.0-5.4 Hemoglobin 13.1 g/dL N 12.0-16.0 Hematocrit 39 % N 35-47 Mean Corpuscular Volume 92 fL N 80-97 Mean Corpuscular Hemoglobin 31 pg N 27-31 Mean Corpuscular HGB Conc 34 g/dL N 31-36 Red Cell Distribution Width 13 % N 10.5-15 Platelet Count 303 10^3/uL N 150-450 Mean Platelet Volume 8 um3 N 7.4-10.4 Abs Neutrophils 3.1 10^3/uL N 1.5-7.7 Abs Lymphocytes 1.1 10^3/uL N 1.0-4.8 Abs Monocytes 0.5 10^3/uL N 0-0.8 Abs Eosinophils 0 10^3/uL N 0-0.6 Abs Basophils 0 10^3/uL N 0-0.2 Abs Nucleated RBC 0.01 10^3/uL N Granulocyte % 64.4 % N 38-83 Lymphocyte % 23.5 % Low 25-47 Monocyte % 10.7 % High 1-9 Eosinophil % 0.9 % N 0-6 Basophil % 0.5 % N 0-2 Nucleated Red Blood Cells % 0.2 N Comp Metabolic Panel 10/31/2014 [facility] Sodium 137 mmol/L N 133-[address] [place] [address] [phone] Potassium 4.1 mmol/L N 3.5-5.0 Chloride 104 mmol/L N 101-111 Co2 Carbon Dioxide 28 mmol/L N 22-32 Anion Gap 5 mmol/L N 2-11 Glucose 86 mg/dL N 70-100 Blood Urea Nitrogen 14 mg/dL N 6-24 Creatinine 1.00 mg/dL High 0.51-0.95 BUN/Creatinine Ratio 14.0 N 8-20 Calcium 9.4 mg/dL N 8.6-10.3 Total Protein 6.7 g/dL N 6.4-8.9 Albumin 4.2 g/dL N 3.2-5.2 Globulin 2.5 g/dL N 2-4 Albumin/Globulin Ratio 1.7 N 1-3 Total Bilirubin 0.30 mg/dL N 0.2-1.0 Alkaline Phosphatase 75 U/L N 34-104 Alt 19 U/L N 7-52 Ast 15 U/L N 13-39 Egfr Non- 55.6 N >60 Egfr 71.6 N >60 30 Lipid Profile 10/31/2014 [facility] Triglycerides 83 mg/dL N 31 (Trig/Chol/HDL) [address] [place] [address] [phone] Cholesterol 123 mg/dL N 32 HDL Cholesterol 42.8 mg/dL N 33 LDL Cholesterol 64 mg/dL N 34 Laboratory test 10/31/2014 [facility] Creatine Kinase 78 U/L N 10-[address] [place] [address] [phone] Troponin I 0.00 ng/mL N <0.03 35 B Type Natriuretic Peptide 25 pg/mL N 36 Lipid Panel 12/11/2012 [facility] Triglycerides 91 mg/dL 40- [address] [place] [address] [phone] Cholesterol 144 mg/dL Less than 200 HDL Cholesterol 44 mg/dL 40-60 37 Cholesterol/HDL Ratio 3.3 Average 1-4.44 LDL Cholesterol 81.8 mg/dL Less Than 100 38 Laboratory test finding 12/11/2012 [facility] Ast 17 U/L 12- [address] [place] [address] [phone] Alt 21 U/L 14-54 Laboratory test 10/05/2012 [facility] Hemoglobin A1c 5.5 % Less than [address] [place] [address] [phone] Lipid Profile 10/05/2012 [facility] Triglycerides 238 High 40- 200 (Trig/Chol/HDL) [address] mg/[place] [address] [phone] Cholesterol 272 mg/dL High Less than 200 HDL Cholesterol 53 mg/dL 40-60 40 Cholesterol/HDL Ratio 5.1 Average High 1-4.44 LDL Cholesterol 171.4 mg/dL High Less Than 100 41 Comp Metabolic Panel 10/05/2012 [facility] Sodium 139 mmol/L 133-[address] [place] [address] [phone] Potassium 5.1 mmol/L High 3.5-5.0 Chloride 102 mmol/L 101-111 Co2 Carbon Dioxide 31.0 mmol/L 22-32 Anion Gap 6.0 mmol/L 2-11 Glucose 98 mg/dL 70-100 Blood Urea Nitrogen 12 mg/dL 6-24 Creatinine 1.10 mg/dL 0.50-1.40 BUN/Creatinine Ratio 10.9 8-20 Calcium 10.1 mg/dL High 8.1-9.9 Total Protein 6.1 g/dL Low 6.2-8.1 Albumin 4.1 g/dL 3.2-5.2 Globulin 2.0 g/dL 2-4 Albumin/Globulin Ratio 2.1 1-3 Total Bilirubin 0.6 mg/dL 0.4-1.5 Alkaline Phosphatase 99 U/L 30-110 Alt 33 U/L 14-54 Ast 24 U/L 12-42 Egfr Non- 50.2 >60 Egfr 64.5 >60 42 Lipid Profile 10/18/2011 [facility] Triglyceride 116 mg/dL 40 -200 (Trig/Chol/HDL) [address] [place] [address] [phone] Cholesterol 166 mg/dL Less Than 200 43 High Density Lipoprotein 50 mg/dL 40-60 44 Cholesterol/HDL Ratio 3.32 AVERAGE 1-4.44 Low Density Lipoprotein 93 mg/dL Less Than 100 45 Laboratory test 10/18/2011 [facility] Hemoglobin A1c 5.8 % Less Than [address] [place] [address] [phone] Comp Metabolic 10/18/2011 [facility] Sodium 139 135-[address] mmol/[place] [address] [phone] Potassium 4.2 mmol/L 3.5-5.0 Chloride 104 mmol/L 101-111 Co2 (Carbon Dioxide) 28.0 mmol/L 22-32 Anion Gap 7.0 mmol/L 2-11 47 Glucose 97 mg/dL 70-100 BUN 11 mg/dL 6-24 Creatinine 1.1 mg/dL 0.50-1.40 One Over Creatinine 0.90 BUN/Creatinine Ratio 10.0 8-20 Calcium 9.2 mg/dL 8.1-9.9 Total Protein 6.4 GM/DL 6.2-8.1 Albumin 4.0 GM/DL 3.2-5.2 Globulin 2.4 GM/DL 2-4 Albumin/Globulin Ratio 1.7 1-3 Bilirubin Total 0.5 mg/dL 0.4-1.5 48 Alkaline Phosphatase 92 U/L 30-110 Alt (SGPT) 22 U/L 14-54 Ast (Sgot) 20 U/L 12-42 eGFR Non- 50.3 > 60 eGFR 64.7 > 60 49 Lipid Profile 01/21/2011 [facility] Triglyceride 132 mg/dL 40 -200 50 (Trig/Chol/HDL) [address] [place] [address] [phone] Cholesterol 176 mg/dL Less Than 200 51 High Density Lipoprotein 51 mg/dL 40-60 52 Cholesterol/HDL Ratio 3.45 AVERAGE 1-4.44 Low Density Lipoprotein 99 mg/dL Less Than 100 53 Comp Metabolic Panel 01/21/2011 [facility] Sodium 141 mmol/L 135-[address] [place] [address] [phone] Potassium 4.6 mmol/L 3.5-5.0 Chloride 104 mmol/L 101-111 Co2 (Carbon Dioxide) 29.0 mmol/L 22-32 Anion Gap 8.0 mmol/L 2-11 54 Glucose 90 mg/dL 70-100 BUN 14 mg/dL 6-24 Creatinine 1.10 mg/dL 0.50-1.40 One Over Creatinine 0.90 BUN/Creatinine Ratio 12.7 8-20 Calcium 9.7 mg/dL 8.1-9.9 Total Protein 6.5 GM/DL 6.2-8.1 Albumin 4.2 GM/DL 3.2-5.2 Globulin 2.3 GM/DL 2-4 Albumin/Globulin Ratio 1.8 1-3 Bilirubin Total 0.6 mg/dL 0.4-1.5 55 Alkaline Phosphatase 77 U/L 30-110 Alt (SGPT) 25 U/L 14-54 Ast (Sgot) 19 U/L 12-42 eGFR Non- 50.5 > 60 eGFR 64.9 > 60 56 Roxana 08/26/2010 [facility] Antinuclear POSITIVE Abnormal Negative (Antinuclear [address] AB Antibodies) [place] [address] [phone] Antinuclear AB 1:80 Abnormal Reviewed By (SEE NOTE) 57 Paraneoplastic Autoab 08/26/2010 [facility] Alma-1 Negative titer <1:[address] [place] [address] [phone] Alma-2 Negative titer <1:240 Alma-3 Negative titer <1:240 Agna-1 Negative titer <1:240 Sign Maintenance-1 Negative titer <1:240 Sign Maintenance-2 Negative titer <1:240 Sign Maintenance-Tr Negative titer <1:240 Amphiphysin AB Negative titer <1:240 CRMP-5-Igg Negative titer () 58 Striational AB Negative titer <1:60 59 P/Q-Type Calcium Channel AB 0.00 nmol/L <=0.02 60 N-Type Calcium Channel AB 0.00 nmol/L <=0.03 61 Ach Receptor Binding AB 0.00 nmol/L <=0.02 62 Achr Ganglionic Neuronal AB 0.01 nmol/L <=0.02 63 VGKC AB, Serum 0.00 nmol/L <=0.02 64 Laboratory test 08/26/2010 [facility] Folic Acid > 20.0 High 2 -[address] NG/[place] [address] [phone] Laboratory test 08/02/2010 [facility] Hemoglobin A1c 5.9 % Less [address]0 [place] [address] [phone] Creatinine 24HR 04/12/2010 [facility] Creatinine 74.[address] Random Urine mg/[place] [address] [phone] Urine Creatinine/24HR 1041.46 MG/24HR 600-1800 Hours Of Collection 24 HR 24- Urine Volume Measurement 1400 ML Creatinine 04/12/2010 [facility] Creat 60 mL/min Low 80-[address] [place] [address] [phone] Comp Metabolic 03/31/2010 [facility] Sodium 141 mmol/L 135- [address] [place] [address] [phone] Potassium 4.0 mmol/L 3.5-5.0 Chloride 104 mmol/L 101-111 Co2 (Carbon Dioxide) 32.0 mmol/L 22-32 Anion Gap 5.0 mmol/L 2-11 66 Glucose 97 mg/dL 70-100 67 BUN 16 mg/dL 6-24 Creatinine 1.30 mg/dL 0.50-1.40 One Over Creatinine 0.70 BUN/Creatinine Ratio 12.3 8-20 Calcium 9.4 mg/dL 8.1-9.9 68 Total Protein 6.6 GM/DL 6.2-8.1 Albumin 4.1 GM/DL 3.2-5.2 Globulin 2.5 GM/DL 2-4 Albumin/Globulin Ratio 1.6 1-3 Bilirubin Total 0.6 mg/dL 0.4-1.5 69 Alkaline Phosphatase 68 U/L 30-110 Alt (SGPT) 23 U/L 14-54 Ast (Sgot) 21 U/L 12-42 eGFR Non- 44.4 > 60 eGFR 53.7 > 60 70 Lipid Profile 03/31/2010 [facility] Triglyceride 86 mg/dL 40- 200 (Trig/Chol/HDL) [address] [place] [address] [phone] Cholesterol 154 mg/dL Less Than 200 71 High Density Lipoprotein 42 mg/dL 40-60 72 Cholesterol/HDL Ratio 3.67 AVERAGE 1-4.44 Low Density Lipoprotein 95 mg/dL Less Than 100 73 Laboratory test 03/11/2010 [facility] Vitamin B12 > 1500 High 180-[address] pg/mL [place], [place] [phone] TSH 2.58 MIU/ML 0.34-5.60 Lyme Disease Serology Negative Negative 74 1 DO THIS IN 1 MONTH 2 Because ethnic data is not always readily available, this report includes an eGFR for both -Americans and non- Americans. The National Kidney Disease Education Program (NKDEP) does not endorse the use of the MDRD equation for patients that are not between the ages of 18 and 70, are , have extremes of body size, muscle mass, or nutritional status, or are non- or non-. According to the National Kidney Foundation, irrespective of diagnosis, the stage of the disease is based on the level of kidney function: Stage Description GFR(mL/min/1.73 m(2)) 1 Kidney damage with normal or decreased GFR 90 2 Kidney damage with mild decrease in GFR 60-89 3 Moderate decrease in GFR 30-59 4 Severe decrease in GFR 15-29 5 Kidney failure <15 (or dialysis) 3 Therapeutic target for the treatment of diabetes mellitus patients is <7% HBA1C, and in selective patients <6.0%. Please refer to [employer] diabetic care guidelines for further information. 4 Desirable: <150 Borderline High: 150-199 High: 200-499 Very High: >500 5 Desirable: <200 Borderline High: 200-239 High: >239 6 Low: <40 Desirable: 40-60 High: >60 7 Desirable: <100 Near Optimal: 100-129 Borderline High: 130-159 High: 160-189 Very High: >189 8 Normal Range 180 to 914 Indeterminate Range 145 to 180 Deficient Range <145 9 patient will present to [facility] to be drawn 10 Because ethnic data is not always readily available, this report includes an eGFR for both -Americans and non- Americans. The National Kidney Disease Education Program (NKDEP) does not endorse the use of the MDRD equation for patients that are not between the ages of 18 and 70, are , have extremes of body size, muscle mass, or nutritional status, or are non- or non-. According to the National Kidney Foundation, irrespective of diagnosis, the stage of the disease is based on the level of kidney function: Stage Description GFR(mL/min/1.73 m(2)) 1 Kidney damage with normal or decreased GFR 90 2 Kidney damage with mild decrease in GFR 60-89 3 Moderate decrease in GFR 30-59 4 Severe decrease in GFR 15-29 5 Kidney failure <15 (or dialysis) 11 Desirable <150 Borderline high 150-199 High 200-499 Very High >500 12 Desirable <200 Borderline high 200-239 High >239 13 Low <40 Desirable: 40-60 High: >60 14 Desirable: <100 mg/dL Near Optimal: 100-129 mg/dL Borderline High: 130-159 mg/dL High: 160-189 mg/dL Very High: >189 mg/dL 15 Because ethnic data is not always readily available, this report includes an eGFR for both -Americans and non- Americans. The National Kidney Disease Education Program (NKDEP) does not endorse the use of the MDRD equation for patients that are not between the ages of 18 and 70, are , have extremes of body size, muscle mass, or nutritional status, or are non- or non-. According to the National Kidney Foundation, irrespective of diagnosis, the stage of the disease is based on the level of kidney function: Stage Description GFR(mL/min/1.73 m(2)) 1 Kidney damage with normal or decreased GFR 90 2 Kidney damage with mild decrease in GFR 60-89 3 Moderate decrease in GFR 30-59 4 Severe decrease in GFR 15-29 5 Kidney failure <15 (or dialysis) 16 Desirable <150 Borderline high 150-199 High 200-499 Very High >500 17 Desirable <200 Borderline high 200-239 High >239 18 Low <40 Desirable: 40-60 High: >60 19 Desirable: <100 mg/dL Near Optimal: 100-129 mg/dL Borderline High: 130-159 mg/dL High: 160-189 mg/dL Very High: >189 mg/dL 20 Because ethnic data is not always readily available, this report includes an eGFR for both -Americans and non- Americans. The National Kidney Disease Education Program (NKDEP) does not endorse the use of the MDRD equation for patients that are not between the ages of 18 and 70, are , have extremes of body size, muscle mass, or nutritional status, or are non- or non-. According to the National Kidney Foundation, irrespective of diagnosis, the stage of the disease is based on the level of kidney function: Stage Description GFR(mL/min/1.73 m(2)) 1 Kidney damage with normal or decreased GFR 90 2 Kidney damage with mild decrease in GFR 60-89 3 Moderate decrease in GFR 30-59 4 Severe decrease in GFR 15-29 5 Kidney failure <15 (or dialysis) 21 FASTING 12 HOUR 22 Therapeutic target for the treatment of diabetes Mellitus patients is <7% HBA1C, and in selective patients <6.0%.Please refer to [employer] Diabetic care guidelines for further information. 23 Because ethnic data is not always readily available, this report includes an eGFR for both -Americans and non- Americans. The National Kidney Disease Education Program (NKDEP) does not endorse the use of the MDRD equation for patients that are not between the ages of 18 and 70, are , have extremes of body size, muscle mass, or nutritional status, or are non- or non-. According to the National Kidney Foundation, irrespective of diagnosis, the stage of the disease is based on the level of kidney function: Stage Description GFR(mL/min/1.73 m(2)) 1 Kidney damage with normal or decreased GFR 90 2 Kidney damage with mild decrease in GFR 60-89 3 Moderate decrease in GFR 30-59 4 Severe decrease in GFR 15-29 5 Kidney failure <15 (or dialysis) 24 PT IS FASTING 25 Because ethnic data is not always readily available, this report includes an eGFR for both -Americans and non- Americans. The National Kidney Disease Education Program (NKDEP) does not endorse the use of the MDRD equation for patients that are not between the ages of 18 and 70, are , have extremes of body size, muscle mass, or nutritional status, or are non- or non-. According to the National Kidney Foundation, irrespective of diagnosis, the stage of the disease is based on the level of kidney function: Stage Description GFR(mL/min/1.73 m(2)) 1 Kidney damage with normal or decreased GFR 90 2 Kidney damage with mild decrease in GFR 60-89 3 Moderate decrease in GFR 30-59 4 Severe decrease in GFR 15-29 5 Kidney failure <15 (or dialysis) 26 Desirable <150 Borderline high 150-199 High 200-499 Very High >500 27 Desirable <200 Borderline high 200-239 High >239 28 Low <40 Desirable: 40-60 High: >60 29 Desirable <100 Near Optimal 100-129 Borderline high 130-159 High 160-189 Very High >189 30 Because ethnic data is not always readily available, this report includes an eGFR for both -Americans and non- Americans. The National Kidney Disease Education Program (NKDEP) does not endorse the use of the MDRD equation for patients that are not between the ages of 18 and 70, are , have extremes of body size, muscle mass, or nutritional status, or are non- or non-. According to the National Kidney Foundation, irrespective of diagnosis, the stage of the disease is based on the level of kidney function: Stage Description GFR(mL/min/1.73 m(2)) 1 Kidney damage with normal or decreased GFR 90 2 Kidney damage with mild decrease in GFR 60-89 3 Moderate decrease in GFR 30-59 4 Severe decrease in GFR 15-29 5 Kidney failure <15 (or dialysis) 31 Desirable <150 Borderline high 150-199 High 200-499 Very High >500 32 Desirable <200 Borderline high 200-239 High >239 33 Low <40 Desirable: 40-60 High: >60 34 Desirable <100 Near Optimal 100-129 Borderline high 130-159 High 160-189 Very High >189 35 Reference Range and Interpretation: TnI (ng/mL) Interpretation Less Than 0.03 ng/mL Not supportive of diagnosis of [place] 0.03 - 0.50 ng/mL Indeterminate: suggest serial studies if clinically indicated. Greater than 0.5 ng/mL Consistent with diagnosis of [place] 36 >100 to <200 pg/mL: likely compensated congestive heart failure (CHF) 200 to 400 pg/mL: likely moderate CHF >400 pg/mL: likely moderate to severe CHF [place] HEART 37 HDL Interpretation: Undesirable: High Risk: Less than 40 MG/DL Desirable: Low Risk: Greater than 60 MG/DL 38 LDL Interpretation: Low Risk Optimal Level: LDL Less than 100 MG/DL Near or Above Optimal: LDL 100-129 MG/DL Borderline High Risk: LDL 130-159 MG/DL High Risk: LDL 160-189 MG/DL Very High Risk: LDL Greater than 189 MG/DL 39 Therapeutic target for the treatment of diabetes Mellitus patients is <7% HBA1C, and in selective patients <6.0%.Please refer to [employer] Diabetic care guidelines for further information. 40 HDL Interpretation: Undesirable: High Risk: Less than 40 MG/DL Desirable: Low Risk: Greater than 60 MG/DL 41 LDL Interpretation: Low Risk Optimal Level: LDL Less than 100 MG/DL Near or Above Optimal: LDL 100-129 MG/DL Borderline High Risk: LDL 130-159 MG/DL High Risk: LDL 160-189 MG/DL Very High Risk: LDL Greater than 189 MG/DL 42 Because ethnic data is not always readily available, this report includes an eGFR for both -Americans and non- Americans. The National Kidney Disease Education Program (NKDEP) does not endorse the use of the MDRD equation for patients that are not between the ages of 18 and 70, are , have extremes of body size, muscle mass, or nutritional status, or are non- or non-. According to the National Kidney Foundation, irrespective of diagnosis, the stage of the disease is based on the level of kidney function: Stage Description GFR(mL/min/1.73 m(2)) 1 Kidney damage with normal or decreased GFR 90 2 Kidney damage with mild decrease in GFR 60-89 3 Moderate decrease in GFR 30-59 4 Severe decrease in GFR 15-29 5 Kidney failure <15 (or dialysis) 43 CHOLESTEROL INTERPRETATION: Desirable: Less than 200 MG/DL Borderline-High Risk: 200-239 MG/DL High-Risk: 240 MG/DL and over 44 HDL INTERPRETATION: Undesirable: High Risk: Less than 40 MG/DL Desirable: Low Risk: Greater than 60 MG/DL 45 LDL INTERPRETATION: Low Risk Optimal Level: LDL Less than 100 MG/DL Near or Above Optimal: LDL 100-129 MG/DL Borderline High Risk: LDL 130-159 MG/DL High Risk: LDL 160-189 MG/DL Very High Risk: LDL Greater than 189 MG/DL 46 THERAPEUTIC TARGET FOR THE TREATMENT OF DIABETES MELLITUS PATIENTS IS <7% HBA1C, AND IN SELECTIVE PATIENTS <6.0%. PLEASE REFER TO [employer] DIABETIC CARE GUIDELINES FOR FURTHER INFORMATION. 47 Anion gap measurement may be of limited value in the presence of any alkalosis, especially in a combined acid base disorder. . 48 A metabolite of Naproxen, O-desmethylnaproxen, has been shown to interfere with the Jendrassik-Luigi method for measuring total bilirubin. Samples from patients who have taken Naproxen have shown spurious elevation in total bilirubin levels. 49 Because ethnic data is not always readily available, this report includes an eGFR for both -Americans and non- Americans. The National Kidney Disease Education Program (NKDEP) does not endorse the use of the MDRD equation for patients that are not between the ages of 18 and 70, are , have extremes of body size, muscle mass, or nutritional status, or are non- or non-. According to the National Kidney Foundation, irrespective of diagnosis, the stage of the disease is based on the level of kidney function: Stage Description GFR(mL/min/1.73 m(2)) 1 Kidney damage with normal or decreased GFR 90 2 Kidney damage with mild decrease in GFR 60-89 3 Moderate decrease in GFR 30-59 4 Severe decrease in GFR 15-29 5 Kidney failure <15 (or dialysis) 50 FASTING 51 CHOLESTEROL INTERPRETATION: Desirable: Less than 200 MG/DL Borderline-High Risk: 200-239 MG/DL High-Risk: 240 MG/DL and over 52 HDL INTERPRETATION: Undesirable: High Risk: Less than 40 MG/DL Desirable: Low Risk: Greater than 60 MG/DL 53 LDL INTERPRETATION: Low Risk Optimal Level: LDL Less than 100 MG/DL Near or Above Optimal: LDL 100-129 MG/DL Borderline High Risk: LDL 130-159 MG/DL High Risk: LDL 160-189 MG/DL Very High Risk: LDL Greater than 189 MG/DL 54 Anion gap measurement may be of limited value in the presence of any alkalosis, especially in a combined acid base disorder. . 55 A metabolite of Naproxen, O-desmethylnaproxen, has been shown to interfere with the Jendrassik-Menard method for measuring total bilirubin. Samples from patients who have taken Naproxen have shown spurious elevation in total bilirubin levels. 56 Because ethnic data is not always readily available, this report includes an eGFR for both -Americans and non- Americans. The National Kidney Disease Education Program (NKDEP) does not endorse the use of the MDRD equation for patients that are not between the ages of 18 and 70, are , have extremes of body size, muscle mass, or nutritional status, or are non- or non-. According to the National Kidney Foundation, irrespective of diagnosis, the stage of the disease is based on the level of kidney function: Stage Description GFR(mL/min/1.73 m(2)) 1 Kidney damage with normal or decreased GFR 90 2 Kidney damage with mild decrease in GFR 60-89 3 Moderate decrease in GFR 30-59 4 Severe decrease in GFR 15-29 5 Kidney failure <15 (or dialysis) 57 REVIEWED BY GABRIEL LEGER MD 58 -- REFERENCE VALUE -- Negative at <1:240 Titers lower than 1:240 may be detectable by recombinant CRMP-5 western blot analysis. CRMP-5 western blot analysis will be done by request on stored serum (held 4 weeks). This supplemental testing is recommended in cases of chorea, vision loss, cranial neuropathy and myelopathy. Contact [facility] Inquiry at [phone] ([phone])to add-on CRMP-5-IgG Western Blot, S. Test Performed by: [facility] Pathology [address] [place] [address] Windows Server Support Technician: Sandro Wang III, M.D. 59 Test Performed by: [facility] [address] [place] [address] Windows Server Support Technician: Sandro Wang III, M.D. 60 Test Performed by: [facility] [address] [place] [address] Windows Server Support Technician: Sandro Wang III, M.D. 61 Test Performed by: [facility] [address] [place] [address] Windows Server Support Technician: Sandro Wang III, M.D. 62 Test Performed by: [facility] [address] [place] [address] Windows Server Support Technician: Sandro Wang III, M.D. 63 Test Performed by: [facility] [address] [place] [address] Windows Server Support Technician: Sandro Wang III, M.D. 64 Test Performed by: [facility] [address] [place] [address] Windows Server Support Technician: Sandro Wang III, M.D. 65 THERAPEUTIC TARGET FOR THE TREATMENT OF DIABETES MELLITUS PATIENTS IS <7% HBA1C, AND IN SELECTIVE PATIENTS <6.0%. PLEASE REFER TO [employer] DIABETIC CARE GUIDELINES FOR FURTHER INFORMATION. 66 Anion gap measurement may be of limited value in the presence of any alkalosis, especially in a combined acid base disorder. . 67 Note change in reference range as of 05/15/08. The change was based on recommendations from the [place] [employer]. 68 Please note change in reference range effective 08 . 69 A metabolite of Naproxen, O-desmethylnaproxen, has been shown to interfere with the Jenrosaliaik-Luigi method for measuring total bilirubin. Samples from patients who have taken Naproxen have shown spurious elevation in total bilirubin levels. 70 Because ethnic data is not always readily available, this report includes an eGFR for both -Americans and non- Americans. The National Kidney Disease Education Program (NKDEP) does not endorse the use of the MDRD equation for patients that are not between the ages of 18 and 70, are , have extremes of body size, muscle mass, or nutritional status, or are non- or non-. According to the National Kidney Foundation, irrespective of diagnosis, the stage of the disease is based on the level of kidney function: Stage Description GFR(mL/min/1.73 m(2)) 1 Kidney damage with normal or decreased GFR 90 2 Kidney damage with mild decrease in GFR 60-89 3 Moderate decrease in GFR 30-59 4 Severe decrease in GFR 15-29 5 Kidney failure <15 (or dialysis) 71 CHOLESTEROL INTERPRETATION: Desirable: Less than 200 MG/DL Borderline-High Risk: 200-239 MG/DL High-Risk: 240 MG/DL and over 72 HDL INTERPRETATION: Undesirable: High Risk: Less than 40 MG/DL Desirable: Low Risk: Greater than 60 MG/DL 73 LDL INTERPRETATION: Low Risk Optimal Level: LDL Less than 100 MG/DL Near or Above Optimal: LDL 100-129 MG/DL Borderline High Risk: LDL 130-159 MG/DL High Risk: LDL 160-189 MG/DL Very High Risk: LDL Greater than 189 MG/DL 74 Test Performed by: [facility] [address] [place] [id number] Windows Server Support Technician: Sandro Wang III, M.D. Procedures Date Code Description Status 12/05/2017 [id number] Mammogram Completed 11/03/2017 68215 Sleep Study Unattended,HRT Rate,Oxygen Sat,Resp Completed Effort/Airflow 12/11/2015 [id number] Mammogram Completed 02/24/2015 [id number] Mammogram Completed 11/06/2014 33278 Stress Test Completed 11/06/2014 59552 Myocardial Perfusion Imaging Tomographic (Spect) Completed Multiple Studies 10/14/2014 32518 EKG Tracing & Interpretation Completed 02/10/2014 [id number] Mammogram Completed 03/29/2013 [id number] Bone Mineral Density Test Completed 10/05/2012 [id number] Mammogram Completed 10/01/2012 29044 EKG Tracing & Interpretation Completed 09/29/2011 60455 EKG Tracing & Interpretation Completed 08/11/2011 [id number] Colonoscopy Completed 08/01/2011 [id number] Bone Mineral Density Test Completed 08/01/2011 [id number] Mammogram Completed 03/17/2010 08173 EKG Tracing & Interpretation Completed 02/02/2009 [id number] Mammogram Completed 07/08/2008 20886 EKG Tracing & Interpretation Completed 01/05/2007 [id number] Mammogram Completed Encounters Type Date Location Provider Dx Diagnosis Office Visit 10/01/2018 [facility] Bri Moore, M19.049 Primary 10:40a Lisa Barros M.D. osteoarthritis, [place] unspecified hand R20.2 Paresthesia of skin Office Visit 06/19/2018 2:40p Jr Moore, R73.03 Prediabetes Lisa Barros M.D. [place] E78.5 Hyperlipidemia, unspecified Office Visit 03/22/2018 Jr Mcfarland G47.9 Sleep disorder, 11:20a Lisa Moore M.D. unspecified [place] Office Visit 02/07/2018 Pulmonology And Lora G47.33 Obstructive sleep 9:30a [facility] APRYL Pryor RN, apnea (adult) [facility] ERIK-PARAM (pediatric) G47.61 Periodic limb movement disorder Office Visit 11/28/2017 Pulmonology And L[place] G47.33 Obstructive sleep 9:00a [facility] Pryor RN, apnea (adult) [facility] ERIK-PARAM (pediatric) G47.61 Periodic limb movement disorder Office Visit 11/14/2017 [facility] Bri Mcfarland N63.10 Unspecified lump 3:20p Lisa Moore M.D. in the right [place] breast, unspecified quadrant Office Visit 10/26/2017 Pulmonology And Yessenia Marques G47.9 Sleep disorder, 2:00p [facility] unspecified Jr G25.81 Restless legs syndrome R09.02 Hypoxemia G47.50 Parasomnia, unspecified Office Visit 09/19/2017 10:00a Jr Mcfarland G47.00 InsomniaLisa M.D. unspecified [place] Office Visit 08/28/2017 2:40p Jr Mcfarland G47.00 InsomniaLisa M.D. unspecified [place] R61 Generalized hyperhidrosis Office Visit 06/28/2017 9:40a [facility] Internal Alvaro Erazo, Z01.818 Encounter for other Medicine - RADIO OPERATOR GROUND preprocedural [place] examination H26.9 Unspecified cataract Office Visit 05/30/2017 Orthopedic Rahul Nichols, S93.402A Sprain of 9:30a Services Of [place] unspecified C.M.A. ligament of left ankle, init encntr Office Visit 05/19/2017 [facility] Internal Bruna M25.572 Pain in left 3:30p Lisa Moore M.D. ankle and joints [place] of left foot F41.9 Anxiety disorder, unspecified Office Visit 01/24/2017 [facility] Internal Bruna R19.09 Other 3:40p Lisa Moore M.D. intra-abdominal and [place] pelvic swelling, mass and lump Office Visit 12/08/2016 Orthopedic Torey Lewis, S46.011A Strain of musc/ tend 9:30a Services Of MD the rotator cuff of C.M.A. right shoulder, init S46.101A Unsp injury of musc/fasc/tend long hd bicep, right arm, init M19.211 Secondary osteoarthritis, right shoulder M25.511 Pain in right shoulder Office Visit 11/25/2016 10:40a [facility] Internal Bruna Z00.00 Encntr for Lisa Moore M.D. general adult [place] medical exam w/o abnormal findings M25.511 Pain in right shoulder R61 Generalized hyperhidrosis F41.9 Anxiety disorder, unspecified E78.5 Hyperlipidemia, unspecified Office Visit 10/27/2016 [facility] Internal Bruna N89.8 Other specified 2:20p Lisa Moore M.D. noninflammatory [place] disorders of vagina Office Visit 10/03/2016 [facility] Internal Bruna R29.6 Repeated falls 3:40p Lisa Moore M.D. [place] R21 Rash and other nonspecific skin eruption Office Visit 05/20/2016 2:20p [facility] Internal Brnua Moore R42 Dizziness and Lisa Barros M.D. giddiness Edward F32.8 Other depressive episodes M79.642 Pain in left hand Office Visit 02/02/2016 2:00p [facility] Internal Ericka Goodman, S23.41xA Sprain of ribs, Medicine - N.P. initial [place] encounter Office Visit 11/19/2015 1:20p [facility] Internal Bruna Z00.00 Encntr for Lisa Moore M.D. general adult [place] medical exam w/o abnormal findings E78.5 Hyperlipidemia, unspecified R53.83 Other fatigue N63 Unspecified lump in breast Z23 Encounter for immunization Office Visit 04/17/2015 1:40p [facility] Internal Bruna 790.21 Impaired Lisa Moore M.D. Fasting Glucose [place] 780.60 Fever, Unspecified 780.8 Generalized Hyperhidrosis Office Visit 02/18/2015 9:00a [facility] Internal Bruna 723.4 Brachial Neuritis Lisa Moore M.D. Or Radiculitis Edward NOS Office Visit 02/05/2015 3:30p Deepthi Lewis 780.93 Memory Loss Neurologic [place] [facility] Office Visit 10/14/2014 4:00p [facility] Internal Bruna 786.50 Pain Chest Unspec [place] Campos 709.8 Skin Disorders Other Spec 307.49 Sleep Disorder Other Office Visit 06/19/2014 11:20a [facility] Internal Bruna 333.94 Restless Leg Lisa Moore M.D. Syndrome [place] 272.4 Hyperlipidemia Other Unspec V04.81 Need For Prophylactic Vaccination & Inoculation/Influenza Office Visit 05/07/2014 9:40a [facility] Internal Bruna Moore, 723.1 Cervicalgia Lisa Leon 311 Depressive Disorder Not Elsewhere Spec Office Visit 04/10/2014 11:20a [facility] Internal Bruna Moore 780.93 Memory Loss Lisa Leon 272.4 Hyperlipidemia Other Unspec 311 Depressive Disorder Not Elsewhere Spec Office Visit 02/18/2014 11:00a [facility] Tristen Richard 780.93 Memory Loss Services [facility] Bailey 311 Depressive Disorder Not Elsewhere Spec Office Visit 12/26/2012 4:20p [facility] Internal Ericka Goodman, 368.9 Visual Medicine - N.PIvelisse Disturbances [place] Unspec Office Visit 10/01/2012 10:00a [facility] Internal Bruna V70.0 Examination Lisa Moore M.D. [facility] Routine AT [facility] Facility 272.4 Hyperlipidemia Other Unspec 790.21 Impaired Fasting Glucose V58.69 Medications Tenant Coordinator (Current) Use Encounter V76.10 Screening For Malignant Neoplasm Breast Office Visit 08/02/2012 [facility] Internal Ericka Goodman, 451.2 Phlebitis & 11:00a Medicine - N.P. Thrombophlebitis [place] Lower Extrem Unspec Office Visit 07/27/2012 [facility] Internal Ericka Goodman, 451.2 Phlebitis & 1:40p Medicine - N.P. Thrombophlebitis [place] Lower Extrem Unspec Office Visit 05/25/2012 [facility] Internal Bruna 729.5 Pain In Limb 4:00p [place] Campos 300.00 Anxiety State Unspec Office Visit 03/19/2012 10:20a Jr Internal [place] 729.5 Pain In Limb Lisa Moore M.D. [place] Office Visit 02/02/2012 1:00p [facility] Internal Bruna 729.5 Pain In Limb Lisa Moore M.D. [place] Office Visit 09/29/2011 10:00a [facility] Internal Bruna V70.0 Examination Lisa Moore M.D. [facility] Routine AT [facility] Facility 272.4 Hyperlipidemia Other Unspec 790.21 Impaired Fasting Glucose V15.88 History Of Fall Office Visit 07/01/2011 DO Not Use Bruna 789.00 Pain Abdominal 2:00p Bonnie Moore M.D. Unspec Site V76.10 Screening For Malignant Neoplasm Breast V82.81 Special Screening For Osteoporosis v04.81 Need For Prophylactic Vaccination & Inoculation/Influenza Office Visit 02/01/2011 3:20p DO Not Use Bruna 729.5 Pain In Bonnie Moore M.D. Limb 472.0 Rhinitis Chronic Office Visit 01/14/2011 1:30p DO Not Use Bruna 472.0 Rhinitis Bonnie Moore M.D. Chronic 272.4 Hyperlipidemia Other Unspec Office Visit 09/15/2010 DO Not Use Ericka Goodman, V58.32 Encounter For 10:00a Jr-[place] N.P. Removal Of Sutures Office Visit 09/02/2010 DO Not Use Ericka Goodman, 845.00 Sprains & 9:30a Attache-[place] N.P. Strains Ankle Unspec Site Office Visit 05/24/2010 DO Not Use Bruna 729.5 Pain In Limb 2:15p Bonnie Moore M.D. Office Visit 04/26/2010 DO Not Use Bruna 585.2 Chronic Kidney 9:15a Bonnie Moore M.D. Disease, Stage II Mild 786.50 Pain Chest Unspec 782.1 Rash & Other Nonspec Skin Eruption Office Visit 03/17/2010 DO Not Use Bruna 786.09 Dyspnea & 12:00p Bonnie Moore M.D. Respiratory Abnormalities Other 272.4 Hyperlipidemia Other Unspec Office Visit 01/12/2010 DO Not Use Ericka Goodman, 723.1 Cervicalgia 1:30p [facility] N.P. Office Visit 11/23/2009 DO Not Use Radrashawn, 781.2 Gait Abnormality 3:00p Bonnie Botello M.D. 355.9 Mononeuritis Unspec Site Office Visit 07/13/2009 DO Not Use Radadryanki, V72.31 Routine Photograph Mounter 10:45a Bonnie Botello M.D. Examination V04.81 Need For Prophylactic Vaccination & Inoculation/Influenza V06.1 Lgweodacmt-Blymbor-Ykcwrmmz Combined (DTaP) Office Visit 05/26/2009 1:45p DO Not Use Rosmery Lee, 729.5 Pain In Bonnie Avalos Limb 477.9 Rhinitis Allergic Cause Unspec Office Visit 05/07/2009 DO Not Use Mary Rodriguez, 959.5 Injury Finger 3:00p Bonnie Avalos, FACP Other & Unspec Office Visit 12/29/2008 DO Not Use Ericka Goodman, 493.90 Asthma Unspec W/O 1:15p [facility] N.P. Status Asthmaticus Office Visit 12/22/2008 DO Not Use Ericka Rex, 053.9 Herpes Zoster W/O 10:00a Jr-[place] N.P. Complication Office Visit 11/11/2008 DO Not Use Radrashawn, 486 Pneumonia 2:15p Bonnie Botello M.D. Organism Unspec Office Visit 11/04/2008 DO Not Use Ericka Goodman, 466.0 Bronchitis Acute 3:15p [facility] N.P. Office Visit 07/08/2008 DO Not Use Radomsdeangelo, V70.0 Examination 10:45a Bonnie Botello M.D. General Medical Routine AT [facility] 272.0 Hypercholesterolemia Pure 611.72 Lump Or Mass Breast V04.81 Need For Prophylactic Vaccination & Inoculation/Influenza Office Visit 03/31/2008 DO Not Use Radrashawn, 692.6 Dermatitis Contact 10:15a Bonnie Botello M.D. Due To Plants (Except Food) Office Visit 11/28/2007 DO Not Use Jesus, 465.9 URI Upper 3:30p Bonnie Botello M.D. Respiratory Infections Acute Unspec Sites Office Visit 10/24/2007 DO Not Use Radrashawn, 786.09 Dyspnea & 11:30a Bonnie Botello M.D. Respiratory Abnormalities Other Office Visit 10/12/2007 DO Not Use Ericka Goodman, 709.9 Skin & 11:30a [facility] N.P. Subcutaneous Tissue Disorders Unspec Office Visit 06/12/2007 DO Not Use Radrashawn, 528.5 Oral Soft Tissue 4:15p Bonnie Botello M.D. Excluding Gingiva & Tongue Lip Diseases Office Visit 06/01/2007 DO Not Use Ericka Goodman, 684 Impetigo 4:00p [facility] N.P. Office Visit 05/09/2007 DO Not Use Radrashawn, 2:15p Bonnie Botello M.D. Office Visit 04/11/2007 DO Not Use Radrashawn, 781.2 Gait Abnormality 4:15p Bonnie Botello M.D. Office Visit 12/14/2006 DO Not Use Radrashawn, 786.52 Painful 3:00p Bonnie Botello M.D. Respiration Office Visit 11/16/2006 DO Not Use Radomsdeangelo, 807.2 FX Sternum Closed 3:30p Bonnie Botello M.D. 786.50 Pain Chest Unspec Office Visit 10/25/2006 DO Not Use Jesus 786.52 Painful 11:15a Bonnie Botello M.D. Respiration 807.11 FX Rib Open One Office Visit 09/06/2006 DO Not Use Radadryanki, 807.09 FX Ribs Closed 3:30p Bonnie Botello M.D. Multiple Unspec Office Visit 08/15/2006 DO Not Use Radrashawn, 924.8 Contusion 2:00p Bonnie Botello M.D. Multiple Sites Not Class Elsewhere Office Visit 05/23/2006 DO Not Use Radrashawn, V70.0 Examination 2:15p Bonnie Botello M.D. General Medical Routine AT Health Care Facility Office Visit 03/30/2006 DO Not Use Radrashawn, 311 Depressive 2:30p Bonnie Botello M.D. Disorder Not Elsewhere Spec Plan of Treatment 11/27/2018 - Bruna Moore M.D.Z00.00 Encounter for general adult medical examination without abnoComments:~B_VACCINES:~b_Flu shot every year in the fall.Tetanus: last one done in 2012Pneumonia vaccines: there are two pneumonia vaccines. You had the Prevnar in 2014 and the Pneumovax in 2016Shingles vaccine: there is a new shingles vaccine - Shingrix. 90% effective. This is available at pharmacies. Series of 2 shots, given 2-6 months apart. Most people get a flu- like reaction. Cost is about $400 - call your insurance about coverage. ~B_ SCREENING:~b_Colonoscopy: last one done in 2010, follow up was recommended at 10 yearsMammogram: last done 12/05/17Pap smear: no longer recommended after age 65Skin monitoring: see Dr. Nadine Hartman density: done in 2012, was normalCholesterol: checked in 2018Screening for glaucoma: every 2 years unless otherwise instructed by your eye doctor ~B_ADVANCE DIRECTIVE:~b_It would be good for us to have a copy of your health care proxy and advanced directive on file here. ~B_FALL RISK:~b_Keep up the gymCheck how much bourbon you are drinking - limit to 1 oz per dayTryto keep the floor clear!Follow up:1 yearL57.0 Actinic keratosisReferral:Nadine Galan MD, Dermatology
[2018-12-24 20:19] LABS: Albumin/Globulin Ratio 1.4 (1-3); BUN/Creatinine Ratio 14.3 (8-20); Calcium 9.2 mg/dL (8.6-10.3); EGFR African American 62.9 (>60); Globulin 2.9 g/dL (2-4); Potassium 3.9 mmol/L (3.5-5.0); Total Bilirubin 0.4 mg/dL (0.2-1.0); Total Protein 6.9 g/dL (6.4-8.9)
[2018-12-24 20:20] LABS: Troponin I 0.01 ng/mL (<0.04)
[2018-12-24] MEDS ORDERED: Ondansetron INJ* 2 MG/ML VIAL IV PRN (21:45)
[2018-12-24] MEDS ORDERED: Al Hydrox/Mg Hydrox/Simet LIQ* 30 ML UDC PO PRN (21:45)
[2018-12-24] MEDS ORDERED: Acetaminophen TAB* 325 MG PO PRN (21:45)
[2018-12-24] MEDS ORDERED: Meclizine TAB* 12.5 MG PO PRN (21:47)
[2018-12-24] MEDS: Gabapentin CAP(*) 100 MG PO SCH (23:45)
[2018-12-24] MEDS: Heparin VIAL(*) 5000 UNITS/ML VIAL (FIVE THOUSAND) SUBCUT SCH (23:46)
[2018-12-25 00:38] LABS: Urine Appearance Clear; Urine Bacteria Absent (Absent); Urine Bilirubin Negative (Negative); Urine Blood Negative (Negative); Urine Color Yellow; Urine Glucose Negative (Negative); Urine Ketones Negative (Negative); Urine Nitrite Negative (Negative); Urine Protein Negative (Negative); Urine Red Blood Cell Trace(0-2/hpf) (Absent); Urine Specific Gravity 1.043 (1.010-1.030); Urine Squamous Epithelial Cell Present (Absent); Urine Urobilinogen Negative (Negative); Urine White Blood Cell Trace(0-5/hpf) (Absent)
--- NOTE | 2018-12-25 00:41 | HP ---
CC: Bruna Moore MD * HISTORY AND PHYSICAL: DATE OF ADMISSION: 12/24/18 TIME OF EVALUATION: 2100. PRIMARY CARE PHYSICIAN: Bruna Moore MD CHIEF COMPLAINT: Vertigo and unsteadiness. HISTORY OF PRESENT ILLNESS: This is a 68-year-old female with past medical history of hyperlipidemia, depression, and anxiety who presents to the emergency room from [place] [facility] after having 2 days of vertigo. The patient states yesterday while driving she developed vertigo and had an episode of nausea, vomiting at her friend's house. She drove home. She thought it was going to get better today and in fact it was much worse today. She had another episode of nausea, vomiting when she went to the emergency room at [place], worse with movement. She states that she does not have a headache. No vision changes. No numbness or weakness. No falls. She states earlier she needed help just standing up because she was unable to ambulate because the dizziness was so bad and because of that she was very unsteady on her feet. She denies any recent URI illness. No cough or congestion. No fever. No chest pain or shortness of breath. No abdominal pain. No history of vertigo in the past. Otherwise, review of systems is negative. In [place], the patient had aspirin 324 mg and meclizine. She states her vertigo is better but still slightly present. The patient was transferred from [place] [facility] Room to [facility] Room for MRI and neurology workup. PAST MEDICAL HISTORY: 1. History of hyperlipidemia. 2. History of obstructive sleep apnea, intolerant of CPAP. 3. Anxiety. 4. Depression. 5. History of arachnoid cyst, status post removal, on her spine. 6. History of restless leg syndrome. MEDICATIONS: 1. Gabapentin at bedtime. 2. Effexor XR in the morning. 3. Lamictal b.i.d. 4. Atorvastatin daily. ALLERGIES: No known drug allergies. FAMILY HISTORY: Mother from dementia in her 90s. Father from old age as well. SOCIAL HISTORY: The patient lives alone. She is independent of her ADLS. 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 No history of smoking. She states she just started drinking a small amount of bourbon every evening for the past 2 to 3 months. Her healthcare proxy is her sister, Deb Payton. Code states is full code. REVIEW OF SYSTEMS: A 14-point review of systems as mentioned in the HPI, otherwise negative. PHYSICAL EXAMINATION GENERAL: In no acute distress, resting comfortably. VITAL SIGNS: Temp is 98.6, pulse rate is 74, respiratory rate is 14, oxygen saturation 95% on room air, blood pressure 132/99. HEENT: Head: Normocephalic. Pupils equal and reactive, anicteric. Oropharynx : Mucous membranes moist. Ears: The patient has some cerumen in her left ear and not impacted. TMs bilaterally are clear. NECK: Supple. No lymphadenopathy. RESPIRATORY: Clear to auscultation. No wheezes, rhonchi, or rales. CARDIAC: Regular rate and rhythm. Soft systolic murmur heard throughout. ABDOMEN: Soft, nontender, and nondistended. EXTREMITIES: No clubbing, cyanosis, or edema. +1 DPs. NEUROLOGIC: Alert and oriented x3. No gross focal neurologic deficits. Negative pronator drift. LABORATORY DATA: White count 6.4, hemoglobin 12.1, hematocrit 36, platelets 354,000. Sodium 138, potassium 3.9, chloride 104, bicarb 25, BUN 15, creatinine 1.05, glucose 93. Alk phos 127. Troponin 0.01. RADIOGRAPHIC DATA: EKG shows normal sinus rhythm. ASSESSMENT/PLAN: This is a 68-year-old female with past medical history of hyperlipidemia who presents to the emergency room from [place] [facility] with 2-day complaint of vertigo and unsteadiness on her feet with nausea, vomiting. 1. Vertigo. Assessment: Based on her initial workup, I suspect her vertigo is from benign paroxysmal positional vertigo. She did have a CTA of her head and neck done at [place] that showed hemodynamically significant stenosis not seen, moderate narrowing of 46% noted at the region of the left vertebral artery. Minimal atherosclerotic narrowing less than 20% noted of the right subclavian, less than 10% of the left carotid bifurcation and her head CT at [place] was negative as well. Her symptoms are improving. She just had a brain MRI, head and neck MRA, which results are pending. Plan: We will admit her for observation to telemetry. Continue neuro checks q.4 hours. We will check a lipid panel as she has been fasting for the past 12 hours. We will add them onto the ER lab workup. If her MRI shows any suspicion of acute stroke, we will start dual antiplatelet therapy. For now, we will just continue her on a baby aspirin, order a bedside swallow, and place her on a regular diet. Continue on her atorvastatin unless her imaging suggests she has had an acute infarct and we will increase it from 40 to 80. We will order a PT consult and recommend following up with any further neurology recommendations. In the morning, we will also order an echocardiogram. 2. Chronic medical problems. We would recommend obtaining an official medication reconciliation, but we will continue her gabapentin at bedtime, venlafaxine, atorvastatin, and gabapentin at bedtime. We will also put her on meclizine as needed for her dizziness to see if there is any improvement with this. 3. FEN. The patient is n.p.o. pending bedside swallow evaluation. Advance to a regular diet if she passes. 4. DVT prophylaxis. The patient scores moderate risk. We will place her on heparin subcutaneous t.i.d. 5. Code status. Full code. TIME SPENT: Greater than 40 minutes were spent doing the history and physical, more than half the time spent in direct patient contact. [id number]/CPS #: [id number] [place]
[2018-12-25] MEDS: Heparin VIAL(*) 5000 UNITS/ML VIAL (FIVE THOUSAND) SUBCUT SCH ×2 (05:23→13:11)
[2018-12-25 06:00] LABS: ABS Basophils 0 10^3/ul (0-0.2); ABS Eosinophils 0.2 10^3/ul (0-0.6); ABS Lymphocytes 1.1 10^3/ul (1.0-4.8); ABS Monocytes 0.6 10^3/ul (0-0.8); ABS Neutrophils 4.8 10^3/ul (1.5-7.7); ABS Nucleated RBC 0 10^3/ul; Eosinophil % 2.8 %; Hematocrit 37 % (33-41); Hemoglobin 12.5 g/dL (12.0-16.0); Lymphocyte % 16.7 %; Mean Corpuscular HGB Conc 34 g/dL (31-36); Mean Corpuscular Hemoglobin 30 pg (27-31); Mean Corpuscular Volume 89 fL (80-97); Mean Platelet Volume 6.6 fL (7.4-10.4); Nucleated Red Blood Cells % 0; Platelet Count 342 10^3/uL (150-450); Red Blood Count 4.17 10^6 /uL (3.70-4.87); Red Cell Distribution Width 14 % (10.5-15); White Blood Count 6.7 10^3/uL (3.5-10.8)
[2018-12-25 06:14] LABS: BUN/Creatinine Ratio 14.2 (8-20); Calcium 9.3 mg/dL (8.6-10.3); EGFR African American 53.9 (>60); EGFR Non-African American 44.5 (>60); Potassium 3.7 mmol/L (3.5-5.0)
[2018-12-25] MEDS ORDERED: NS 0.9% 1000 ML** 1,000 ML IV SCH (07:45)
[2018-12-25] MEDS ORDERED: Aspirin 81 mg CHEW TAB* 81 MG TAB.CHEW PO SCH (09:00)
[2018-12-25] MEDS ORDERED: Venlafaxine EXT RELEASE CAP* 75 MG PO SCH (09:00)
[2018-12-25] MEDS: Gabapentin CAP(*) 100 MG PO SCH (09:19)
[2018-12-25] MEDS ORDERED: lamoTRIgine TAB(*) 100 MG PO SCH (10:00)
--- NOTE | 2018-12-25 11:28 | ECHO ---
Patient: MARÍA FERNÁNDEZ [facility] Rec#: [id number] : 1950 Date: 12/25/2018 Age: 68y Height: 163 cm / 64.2 in Weight: 86.2 kg / 190.0 lbs Sex: F BSA: 1.9 Room#: [facility] Admit Date#: 12/24/2018 Type: Inpatient Referring: Anyi Hayes Reading: Randell Diaz MD Estate Agent: Dina Patterson RN RDCS CC: Bruna Moore MD Transthoracic Echocardiogram Indication: TIA BP: 140/66 HR: 68 Rhythm: NSR Findings History: HLD, obesity, ANITA, anxiety, depression Technical Comments: The study is technically limited due to poor parasternal windows. The study is technically limited due to patient body habitus. Left Ventricle: The left ventricular chamber size is normal. Mild concentric left ventricular hypertrophy is observed. There is increased basal septal hypertrophy noted without evidence of an increased gradient across the left ventricular outflow tract. Global left ventricular wall motion and contractility are within normal limits. Left ventricular systolic function is at the lower limits of normal. The estimated ejection fraction is 50-55%. There is no consistent Doppler evidence of clinically significant diastolic dysfunction. Left Atrium: The left atrial chamber size is normal. Right Ventricle: The right ventricular chamber size and systolic function are within normal limits. Right Atrium: The right atrial cavity size is normal. The bubble study is negative. A patent foramen ovale is not demonstrated with color Doppler and agitated contrast. Aortic Valve: The aortic valve structure is not well visualized. The aortic valve leaflets are mildly thickened. There is no evidence of aortic regurgitation. There is no evidence of aortic stenosis. Mitral Valve: The mitral valve leaflets are mildly thickened. There is a trace of mitral regurgitation. There is no evidence of mitral stenosis. Tricuspid Valve: The tricuspid valve leaflets are normal. There is trace tricuspid regurgitation. Unable to estimate the right ventricular systolic pressure. There is no tricuspid stenosis. Pulmonic Valve: The pulmonic valve structure is not well visualized. Pericardium: There is no significant pericardial effusion. A pericardial fat pad is visualized. Aorta: The ascending aorta is not well visualized. There is no dilatation of the aortic arch. There is no dilation of the aortic root. Pulmonary Artery: The main pulmonary artery is not well visualized. Venous: The inferior vena cava appears normal in size. There is a greater than 50% respiratory change in the inferior vena cava dimension. Contrast: Normal saline was used as contrast for the bubble study. Images 1 and 2. Summary: There was not any prior study for comparison. Conclusions Mild concentric left ventricular hypertrophy is observed. There is increased basal septal hypertrophy noted without evidence of an increased gradient across the left ventricular outflow tract. Global left ventricular wall motion and contractility are within normal limits. The estimated ejection fraction is 50-55%. A patent foramen ovale is not demonstrated with color Doppler and agitated contrast. There is no evidence of aortic stenosis. There is a trace of mitral regurgitation. There is trace tricuspid regurgitation. Unable to estimate the right ventricular systolic pressure. There is no significant pericardial effusion. Measurements Name Value Normal Range RVDdMajor (2D) 3.2 cm (2.2 - 4.4) RAd ISD 4CH 4.3 cm (3.4 - 4.9) RA (A4C)W 3.5 cm (2.9 - 4.6) IVSd (2D) 1.1 cm (0.6 - 1) LVPWd (2D) 1.1 cm (0.6 - 1) LVIDd (2D) 4.1 cm (3.6 - 5.4) LVIDs (2D) 3.2 cm - LV FS (2D) 22 % (25 - 45) Aortic Annulus 1.9 cm (1.4 - 2.6) Ao root diameter (2D) 2.8 cm (2.1 - 3.5) Aortic arch 2.6 cm (1.8 - 3.4) LA dimension (AP) 2D 2.8 cm (2.3 - 3.8) LAd ISD 4CH 5.2 cm (2.9 - 5.3) LA ISD 4CH W 3.7 cm (2.5 - 4.5) Name Value Normal Range LA ESV BP (A/L) index 22.7 ml/m2 - Name Value Normal Range MV E-wave Vmax 0.68 m/sec - MV deceleration time 271 msec - MV A-wave Vmax 0.89 m/sec - MV E:A ratio 0.8 ratio - LV septal e' Vmax 0.07 m/sec - LV lateral e' Vmax 0.08 m/sec - LV E:e' septal ratio 9.7 ratio - LV E:e' lateral ratio 8.5 ratio - Name Value Normal Range AV Vmax 1.3 m/sec - AV VTI 28.1 cm - AV peak gradient 7 mmHg - AV mean gradient 5 mmHg - LVOT Vmax 1.1 m/sec - LVOT VTI 22.8 cm - LVOT peak gradient 4 mmHg - LVOT mean gradient 2 mmHg - NATASHA Vmax 0.7 m/sec - Name Value Normal Range IVC diameter 1.5 cm - Name Value Normal Range PV Vmax 0.64 m/sec -
[2018-12-25 15:51] VITALS: BP 136/76
--- NOTE | 2018-12-25 20:36 | CONS ---
NEUROLOGY CONSULTATION NOTE: DATE OF CONSULT: 12/25/18 CONSULTING PROVIDER: Barbara Castaneda NP REASON FOR CONSULT: Ms. Candice Payton is a 68-year-old female who has history of dyslipidemia, anxiety and depression, who was transferred from [place] [facility] for a 2-day history of vertigo. The patient states that she woke up Monday morning with sudden onset dizziness. The dizziness was described as constant vertiginous like movements of her surrounding environment. She still was up and trying to ambulate, but felt everything around her was very unsteady. She thought that was going to fall. She vomited few times on Monday. Monday morning, she kept falling forward and backwards when she ambulated. Her symptoms seemed to subside when she sits down or fixates her eyes to one certain object without moving her head. She went to [place] and had a CT, CTA head and neck that showed no acute intracranial abnormalities. She stated that her vertigo subsided today. She denied any headaches, ear pain , tinnitus or hearing loss. She had an MRI of the brain here at [facility] on 12/24/18 that showed no evidence of acute infarct. There is a questionable hemorrhage on the GRE/SRE sequence in the right temporal lobe, but that is chronic. There is no evidence of hemorrhage on the CAT scan. There is also a focal signal abnormality in the right posterior, frontal, left parietal white matter lesion that has a T1 hole consistent with possibly a vascular insult such as small vessel disease or small lacunar stroke. The radiologist called it that this may suggest an underlying infection, but I cannot appreciate any evidence of infection on the MRI or clinical history. She had an MRA of the head and neck with no definite intracranial vascular stenosis. She had a transthoracic echo completed on 12/24/18 that reported an EF of 50% to 55%. There is increase in basal septal hypertrophy and there is no patent foramen ovale. Today, the patient is asymptomatic. When she walks around, she feels slightly dizzy, but now much better than the previous 48 hours. She denied any focal weakness or paraesthesias. She denied any double vision. PAST MEDICAL HISTORY: 1. Dyslipidemia. 2. Obstructive sleep apnea, intolerant of CPAP. 3. Anxiety. 4. Depression. 5. History of arachnoid cyst, status post removal, in her spine. 6. History of restless leg syndrome. MEDICATIONS: 1. Venlafaxine 450 mg p.o. daily. 2. Lamotrigine 200 mg p.o. b.i.d. 3. Atorvastatin 80 mg p.o. daily. 4. Acetaminophen 650 mg every 4 hours. 5. Ibuprofen 200 mg capsule every 6 hours as needed. SOCIAL HISTORY: She lives alone. She denied any tobacco use. She drinks a small glass of bourbon on a daily basis. 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 FAMILY HISTORY: She has no family history of stroke. Her mother suffered from dementia. There is no family history of epilepsy. ALLERGIES: No known drug allergies REVIEW OF SYSTEMS: A 14-point review of systems was obtained and otherwise negative except for as mentioned in the HPI. PHYSICAL EXAM: Vitals: Temperature of 98, pulse rate of 77, respiratory rate of 16, oxygen saturation of 99%, blood pressure is 136/76. General: Well- nourished, well-developed female in no acute distress. Head: Normocephalic, atraumatic. HINT examination is negative on both sides. Eyes: Conjunctivae/ corneas are clear. Neck is supple and symmetrical. No carotid bruits. Lungs are clear to auscultation bilaterally. Cardiovascular: Regular, rate, and rhythm with normal S1, S2. Extremities: Normal range of motion with cyanosis. Skin: No skin lesions or laceration. Psych: Affect is broad and normal mood. Neurological Examination: Mental Status: Awake, alert, and oriented to person, place, time, and general circumstances. Speech and language including expression, naming, repetition and comprehension were assessed and found to be normal. Cranial Nerves: Normal confrontation testing bilaterally. Pupils are mid range and reactive to light. There is normal consensual response. Sensation is intact on the forehead, cheeks and jaw region bilaterally. There is no facial droop. She is able to hear throughout the history process. Symmetrical palatal elevation. Normal shoulder shrug against resistance. Tongue is symmetrical and midline with no atrophy or fasciculation. Motor Examination: No abnormal movements or pronator drift. No fasciculation. She has got 5/5 strength in the upper and lower extremities symmetrically bilaterally. Reflexes: Right/left brachioradialis 2/2, biceps 2/2, triceps 2/2 , patella 2/2, ankle 1/1, plantar flexor/flexor. Sensation is intact to light touch throughout. Coordination: Normal [id number] and rapid alternating movements. Gait: Narrow based, normal stance and gait. No ataxia. ASSESSMENT: 1. Ms. Candice Payton is a 68-year-old female with a history of dyslipidemia, anxiety, depression who presented with a 2-day history of nearly constant vertigo that has resolved. Clinical examination and MRI did not suggest a stroke. I suspect she has benign positional paroxysmal vertigo that has resolved. I do not recommend any further treatment. I did inform the patient that there is a recurrent rate for benign paroxysmal positional vertigo and she should slowly maneuver her neck positioning, especially when she gets out of bed. 2. Abnormal MRI with a small punctate lacunar infarct in the right frontal region - this was called as a possible remote infection by the radiologist. The patient has no history of infection in this year, none from the past. I recommend starting aspirin 81 mg daily, continue the atorvastatin 80 mg daily. 3. Anxiety and depression - I am concerned that the patient is on high dose venlafaxine. I encouraged her to discuss this further with her PCP or psychiatrist. TIME SPENT: I spent a total of 60 minutes of which more than 50% was spent obtaining history, examining the patient, counseling, and education, and discussing the treatment plan as mentioned above. [id number]/[facility] #: [id number] MTDD
[2018-12-25] MEDS ORDERED: Gabapentin CAP(*) 100 MG PO SCH (21:00)
[2018-12-25] MEDS ORDERED: Atorvastatin* 40 MG TAB PO SCH (21:00)
--- NOTE | 2018-12-25 23:45 | DS ---
CC: Dr. Bruna Moore * DISCHARGE SUMMARY: DATE OF ADMISSION: 12/24/18 DATE OF DISCHARGE: 12/25/18 PRIMARY CARE PROVIDER: Dr. Bruna Moore. ATTENDING PROVIDER: Dr. Dubon * (DICTATED BY MARII MORAES, JOSE) PRIMARY DIAGNOSIS: Dizziness. SECONDARY DIAGNOSES: 1. Hyperlipidemia. 2. Obstructive sleep apnea, intolerant of CPAP. 3. Anxiety. 4. Depression. 5. Arachnoid cyst, status post removal on her spine. 6. Restless leg syndrome. CONSULTATIONS WHILE IN THE HOSPITAL: Dr. Jeffrey, Neurology. STUDIES WHILE IN THE HOSPITAL: 1. EKG: Impression: Normal sinus rhythm. 2. Brain MRI: Impression: No acute ischemia, mass, or overt intracranial hemorrhage identified. Question small arteriovenous malformation in the right temporal lobe. Focal signal abnormalities in the right posterior frontal and left parietal white matter are nonspecific but may reflect prior parenchymal insult such as infection. 3. Head MRA: Impression: No definite intracranial vascular abnormalities identified. Diminished visualization of the distal right MCA and the proximal M2 branches, felt to be artifactual. 4. Neck MRA. Impression: No hemodynamically significant stenosis. 5. Transthoracic echo: Impression: Mild concentric left ventricular hypertrophy was observed. Increased basal septal hypertrophy noted without evidence of an increased gradient across the left ventricle outflow tract. Global left ventricular wall motion and contractility are within normal limits. Estimated ejection fraction 50% to 55%. Patent foramen ovale was not demonstrated with color Doppler and agitated contrast. No evidence of aortic stenosis. Trace of mitral regurgitation, trace tricuspid regurgitation, unable to estimate right ventricular systolic pressure. No significant pericardial effusion. DISCHARGE HOME MEDICATIONS: New home medications: 1. Aspirin 81 mg p.o. daily. Continued home medications: 1. Lamictal 200 mg p.o. b.i.d. 2. Effexor 450 mg p.o. daily. 3. Multivitamin 1 p.o. daily. 4. Magnesium 1 p.o. daily. 5. Ibuprofen 200 mg p.o. q.6 hours p.r.n. 6. Atorvastatin 80 mg p.o. daily. 7. Acetaminophen/diphenhydramine 500/25 two tabs p.o. at bedtime p.r.n. 8. Tylenol 650 mg p.o. q.4 hours p.r.n. Changed home medications: No home medications changed. Discontinued home medications: No home medications discontinued. HISTORY OF PRESENT ILLNESS/HOSPITAL COURSE: Mrs. Payton is a 68-year-old female with past medical history significant for hyperlipidemia, depression, anxiety, who presented to the [facility] on 12/24/18 after having 2 days of vertigo and then was subsequently transferred to [facility] for further evaluation. Please see history and physical dictated by Dr. Anyi Hayes for complete details of events leading up to the patient's presentation, but in short, the patient reports vertigo started on Monday with slight dizziness. She continues to explain that it worsened upon waking on 12/24/18, to the point that she was unsteady on her feet. The patient had no aggravating or alleviating symptoms. While in the emergency room, the patient underwent imaging and neurology workup as mentioned above. Given the patient's presentation, she was admitted to telemetry for further monitoring and routine neuro checks which remained unremarkable. The patient had further imaging as mentioned above. The patient was consulted by Dr. Jeffrey from Neurology, who suspected a possible old CVA; therefore, the patient will be placed on aspirin daily. The patient is stable for discharge home today. Vital signs: Temp 97.9, HR 74, RR 18, O2 saturation 97% on room air, BP 123/ 73. REVIEW OF SYSTEMS: A 14-point review of systems was completed and all were negative. The patient is no longer symptomatic. The patient is ambulating without difficulty. PHYSICAL EXAMINATION: General: Mrs. Payton is a 68-year-old female who is sitting in bed, appears in no acute distress, appears stated age. HEENT: EOMs intact. PERRLA. Oral mucosa is moist without lesion. Posterior pharynx is clear. Neck: Supple. No lymphadenopathy. Respiratory: Lungs are clear to auscultation. Good aeration. No wheezes, rhonchi, or rubs. Cardiac: S1, S2 present. No murmurs, rubs, or gallops. Regular rate and rhythm. Abdomen: Soft, nontender. Bowel sounds x4. Extremities: No edema. No clubbing or cyanosis. No pain or deformities. Skin: Skin is intact. Neuro: Cranial nerves II through XII are grossly intact. Coordination is intact. No drift. Sensation is intact. Strength is 5/5 throughout. LABORATORY DATA: WBC 6.7, hemoglobin 12.5, hematocrit 37, platelets 342. Sodium 139, potassium 3.7, chloride 105, carbon dioxide 27, BUN 17, creatinine 1.20. DISCHARGE PLANS AND FOLLOWUP: 1. Dizziness: As mentioned above, I suspect the patient had vertigo. The patient will be discharged with an order for meclizine. During the patient's workup, it was noted that the patient had a possible old cerebrovascular accident; therefore, the patient was placed on 81 mg aspirin daily. It should also be noted that the patient had lipids drawn in a fasting state with the following results: Cholesterol 192, LDL 108, HDL 59. I would encourage the patient to follow up with her primary care regarding elevated cholesterol. The patient is to continue her statin. 2. Hyperlipidemia: As mentioned above, the patient is to continue her statin and follow up with her primary care for repeat labs and further education on lifestyle changes. 3. Obstructive sleep apnea, intolerant of CPAP: I would encourage the patient to follow up with her primary care and discuss alternative treatments for obstructive sleep apnea as there is a great risk for untreated sleep apnea. 4. Anxiety: The patient is to continue her home medications the same. 5. Depression: The patient is to continue her home medications the same. 6. History of arachnoid cyst. No evidence of recurrence; therefore, the patient should follow up as needed. 7. History of restless leg. The patient is to continue her sleep aids and magnesium and follow up with her primary care as needed. 8. Education: The patient was educated on new and worsening symptoms and when to return to the emergency department. The patient stated understanding. 9. Followup: As mentioned above, I have encouraged the patient to follow up with her primary care regarding her hospital stay and her chronic medical issues. In addition, I have encouraged her to follow up in 1 to 2 weeks and have a repeat BMP to reassess her creatinine as it was documented at 1.05 on admission and 1.20 today. I suspect this is secondary to dehydration and administration of contrast. The patient was given fluids while admitted, but I do believe it warrants rechecking to make sure it stabilizes. TIME SPENT: Approximately 35 minutes was spent on this discharge, greater than half the time was spent [id number] with the patient discussing discharge plan and instructions. PLAN: This plan was discussed with my attending Dr. Dubon, who agrees with my plan. MARII MORAES, CISTERN ROOM OPERATOR [id number]/[facility] #: [id number] [facility]ICAL CENTERJune
== END 2018-12-25 16:00 | disposition home or self-care (01) ==
LOC: ED 19:16 → MEDTELE 21:49
PROVIDERS: ADMIT Pediatrics; ATTEND Internal Medicine
DX: R42 Dizziness and giddiness (principal); E78.5 Hyperlipidemia, unspecified; G47.33 Obstructive sleep apnea (adult) (pediatric); F41.9 Anxiety disorder, unspecified; Z79.82 Long term (current) use of aspirin; F32.9 Major depressive disorder, single episode, unspecified; G93.0 Cerebral cysts; G25.81 Restless legs syndrome; E66.9 Obesity, unspecified
CPT/HCPCS: 36415; 70544; 70547; 70551; 80048; 80053; 80061; 81003; 81015; 83605; 84484; 85025; 87086; 93005; 93306; 96361; 96372; 99284; A9270-GY; G0378; G8978-GP-CI; G8979-GP-CI; G8980-GP-CI; J1644

== ENCOUNTER 2019-08-27 14:48 | Emergency (ER) | payer MEDICARE, BC ==
[2019-08-27 15:24] VITALS: BP 124/63
--- NOTE | 2019-08-27 15:32 | UC ---
Back Pain HPI - HPI Summary HPI Summary: 68-year-old female who had some right upper back pain yesterday after shoveling snow. She then proceeded to do her regular exercise routine at the gym today and now she has increased right upper back pain. She denies any shortness of breath however states that she has a "catch" when she takes deep breath or moves just the right way. - History of Current Complaint Chief Complaint: UCBackPain Stated Complaint: BACK PAIN Time Seen by Provider: 08/27/19 15:32 Hx Obtained From: Patient ?: No Onset/Duration: Gradual Onset Timing: Intermittent Severity Initially: Moderate Severity Currently: Mild Pain Intensity: 2 Back Pain: Is Diffuse - Neck pain is mostly at the right upper back. Character: Dull, Aching Aggravating Factor(s): Movement, Lifting Alleviating Factor(s): Rest Associated Signs And Symptoms: Positive: Negative - Allergies/Home Medications Allergies/Adverse Reactions: Allergies Allergy/AdvReac Type Severity Reaction Status Date / Time No Known Allergies Allergy Verified 07/11/17 07:25 Home Medications: Home Medications Gabapentin CAP(*) [Neurontin 100 mg CAP(*)] 100 mg PO DAILY 08/27/19 [History Confirmed 08/27/19] PMH/Surg Hx/FS Hx/Imm Hx Previously Healthy: Yes Psychological History: Depression - Surgical History Surgical History: Yes Surgery Procedure, Year, and Place: SPINAL CYST REMOVED. BREAST BIOPSY - Family History Known Family History: Positive: Cardiac Disease, Other Family History: CA and Alzheimer's - Social History Occupation: Employed Full-time Alcohol Use: Rare Alcohol Amount: 1 X MONTHLY Substance Use Type: None Smoking Status (MU): Never Smoked Tobacco Review of Systems All Other Systems Reviewed And Are Negative: Yes Musculoskeletal: Positive: Other: - Patient complains of pain to the right upper posterior shoulder and back. Is Patient Immunocompromised?: No Physical Exam Triage Information Reviewed: Yes Appearance: Well-Appearing, No Pain Distress, Well-Nourished Vital Signs: Initial Vital Signs Temp 98.2 F 08/27/19 15:15 Pulse 78 08/27/19 15:15 Resp 16 08/27/19 15:15 BP 124/63 08/27/19 15:15 Pulse Ox 97 08/27/19 15:15 Vital Signs Reviewed: Yes Eyes: Positive: Conjunctiva Clear Neck: Positive: Supple, Nontender - C-spine nontender, No Lymphadenopathy Respiratory: Positive: Lungs clear, Normal breath sounds, No respiratory distress, No accessory muscle use Cardiovascular: Positive: RRR, No Murmur, Pulses Normal, Brisk Capillary Refill Musculoskeletal: Positive: Strength Intact, ROM Intact, Other: - Patient has good range of motion of her extremities. She does have mild pain on palpation to the right upper posterior back. No bruising, erythema, deformity or swelling is noted. Neurological Exam: Normal Psychological Exam: Normal Skin Exam: Normal Back Pain Course/Dx - Course Course Of Treatment: Chest x-ray:REPORT: Elevated lung volumes and both diffuse mild prominence of the interstitial markings and patchy rarefaction of the mid to upper lung zone interstitial markings. No focal pulmonary lesion, compelling alveolar consolidation, pleural effusion, pneumothorax. The heart, pulmonary vasculature , and mediastinal contours are unremarkable. No thoracic fractures evident. Multilevel predominant mild thoracic degenerative spondylosis. Degenerative arthropathy about the shoulders. IMPRESSION: #. Stigmata of obstructive lung disease. No acute pulmonary or cardiac process evident. I believe at this point time this is a muscle strain and the patient can apply either ice or heat to the sore area which ever feels good. She may continue Motrin every 8 hours intermittent me for pain. She is to avoid movements that cause pain. She is not to do her upper body exercises for the rest of the week. - Differential Dx/Diagnosis Provider Diagnosis: Muscle strain of upper back Discharge ED - Sign-Out/Discharge Documenting (check all that apply): Patient Departure All imaging exams completed and their final reports reviewed: Yes - Discharge Plan Condition: Good Disposition: HOME Patient Education Materials: Muscle Strain (DC) Referrals: Bruna Moore MD [Primary Care Provider] - Additional Instructions: Apply heat to the sore areas as much as possible over the next few days. Avoid movements that cause pain. No upper body exercises until pain-free. May take Motrin every 8 hours with food. Definite follow-up with your primary care provider early next week if no improvement. - Billing Disposition and Condition Condition: GOOD Disposition: Home
== END 2019-08-27 16:19 | disposition home or self-care (01) ==
LOC: UCCORT 14:48
DX: S29.012A Strain of muscle and tendon of back wall of thorax, initial encounter (principal); M25.511 Pain in right shoulder; X58.XXXA Exposure to other specified factors, initial encounter; Y93.H1 Activity, digging, shoveling and raking; Y92.9 Unspecified place or not applicable
CPT/HCPCS: 71046; 99211; G0463

== ENCOUNTER 2020-05-28 13:14 | Inpatient (IN) ==
[2020-05-28] MEDS ORDERED: Ondansetron 4 mg VIAL 2 MG/ML 2 ml VIAL IV ONE (13:47)
[2020-05-28] MEDS ORDERED: Metoclopramide 5 MG/ML VIAL (10 mg) IV SLOW PU ONE (13:47)
[2020-05-28] MEDS ORDERED: NS 0.9% 500 ml BAG 500 ML IV ONE (13:47)
[2020-05-28 14:10] LABS: ABS Lymphocytes 0.5 10^3/ul (1.0-4.8); ABS Monocytes 0.3 10^3/ul (0-0.8); ABS Neutrophils 7.1 10^3/ul (1.5-7.7); Eosinophil % 0.5 %; Hematocrit 36 % (35-47); Hemoglobin 12.2 g/dL (12.0-16.0); Lymphocyte % 6.4 %; Mean Corpuscular HGB Conc 34 g/dL (31-36); Mean Corpuscular Hemoglobin 30 pg (27-31); Mean Corpuscular Volume 89 fL (80-97); Mean Platelet Volume 6.8 fL (7.4-10.4); Platelet Count 337 10^3/uL (150-450); Red Blood Count 4.03 10^6 /uL (3.70-4.87); Red Cell Distribution Width 14 % (10-15)
[2020-05-28 14:29] LABS: Albumin 4.1 g/dL (3.2-5.2); Albumin/Globulin Ratio 1.3 (1-3); BUN/Creatinine Ratio 22.6 (8-20); Calcium 9.4 mg/dL (8.6-10.3); EGFR African American 72.1 (>60); EGFR Non-African American 59.6 (>60); Globulin 3.1 g/dL (2-4); Potassium 3.9 mmol/L (3.5-5.0); Total Bilirubin 0.3 mg/dL (0.2-1.0); Total Protein 7.2 g/dL (6.4-8.9)
[2020-05-28] MEDS ORDERED: Prochlorperazine 5 mg/ml 2 ml VIAL (10 mg) IV ONE (16:31)
[2020-05-28] MEDS ORDERED: Prochlorperazine 5 mg/ml 2 ml VIAL (10 mg) ONE (17:28)
[2020-05-28] MEDS ORDERED: Ondansetron 4 mg VIAL 2 MG/ML 2 ml VIAL IV PRN (19:26)
[2020-05-28] MEDS ORDERED: Senna TAB 8.6 mg TAB PO PRN (19:26)
[2020-05-28] MEDS ORDERED: Lorazepam PYXIS KEY PRN (19:32)
[2020-05-28] MEDS ORDERED: Prochlorperazine 5 mg/ml 2 ml VIAL (10 mg) IV PRN (19:32)
[2020-05-28] MEDS ORDERED: LORazepam 2 mg VIAL 1 ml IV PUSH ONE (19:32)
[2020-05-28] MEDS ORDERED: LORazepam 2 mg VIAL 1 ml ONE (19:48)
[2020-05-28] MEDS ORDERED: Lorazepam PYXIS KEY ONE (19:48)
[2020-05-28] MEDS ORDERED: Enoxaparin 40 MG/0.4 ML SYR SUBCUT SCH (20:00)
[2020-05-29 07:10] LABS: HDL Cholesterol 35.8 mg/dL
[2020-05-29] MEDS ORDERED: Aspirin EC 81 mg TAB.EC (enteric coated) PO SCH (09:00)
[2020-05-29] MEDS ORDERED: Venlafaxine XR 75 mg PO SCH (09:00)
[2020-05-29 12:33] LABS: Urine Appearance Cloudy; Urine Bilirubin Negative (Negative); Urine Blood Negative (Negative); Urine Color Yellow; Urine Glucose Negative (Negative); Urine Ketones Negative (Negative); Urine Nitrite Negative (Negative); Urine Protein Negative (Negative); Urine Specific Gravity 1.016 (1.010-1.030); Urine Urobilinogen Negative (Negative)
[2020-05-29 16:00] VITALS: BP 128/56
== END 2020-05-29 17:28 | disposition home or self-care (01) | DRG 149 ==
LOC: ED 13:14 → MEDTELE 13:14
PROVIDERS: ADMIT Physician Assistant; ATTEND Internal Medicine